=== PATIENT | female | born 1970 | race Caucasian/White ===

== ENCOUNTER → 2016-06-03 | Outpatient (CLI) | payer OTHER ==
[~2016-06-03] MED LIST: AMLO-110 PO; ASPCH81X PO; CLOP1TAB54 PO; COEN1CAP17 PO; CYCL10TA6 PO; ESCI1TAB10 PO; ESOM20CA PO; FERR325T5 PO; FLUT0.0529 NAE; FLUT0.15 NAE; GLYB5TAB8 PO; INSDGI SQ; LISI40TA PO; LORA-741 PO; LSX20 PO; METF-384 PO; METO25TA3 PO; NTRGSL/4 UT; NVLGI/PEN SQ; PRED1SUS3 OPR; ROSU5TAB PO
--- NOTE | 2016-06-04 05:43 | PAP/PSG TECHNICIAN REPORT ---
[facility] Fence Gate Assembler Polysomnogram Report Study name: None Report date: 06/04/2016 Study date: 06/03/2016 Referring Physician: Brennan Simms M.D. Name: GUILLAUME MCKEON Interpreting Physician: Rosette Simms M.D. Date of : 1970 Fence Gate Assembler: Aster Longoria [facility]. Sex: Female Age: 45 StudyType: PSG Weight: 306 lbs Height: 45 years, Height 5' 10" Neck Circum: 15.75 inches BMI: 43.9 Medications: Diabeta 5 mg, Crestor 10 mg, Lantus, Lexapro 20 mg, Prednisone, Lasix, Novolog, Metofrmin, Insulin, Toprol, Norvasc, Ativan, Lisinopril, Nexium, Nitrostat, CoQ10, Flonase, Cyclobenzaprine, Ferrous Sulfate, Aspirin Patient History 45 yr. old male here for a possible split night sleep study with ETC02. Patient complains of restlessness and snoring. Patients Ernest sleepiness scale score is 3/21 ( patient does not drive). Patient took 2 Benadryl at 3:40 am for being itchy Parameters Monitored NPSG: E1-M2, E2-M1, Fp1-M2, Fp2-M1, F3-M2, F4-M2, F4-M1, C3-M2, C4-M2, C4-M1, O1-M2, O2-M2, O2-M1, T3-M2, T4-M1, P3-M2, P4-M1, CHIN1, CHIN2, HR, EKG, Legs, PFLOW, SNOR, FLOW, CFLOW, Tidal Volume, THOR, ABDO, SpO2, PLTH, CPRESS, ETCO2 Wave, ETCO2, pH Sleep Architecture Sleep Stages Time at Lights Off 9:53:29 PM STAGES Time (min.) TST (%) Time at Lights On 5:30:29 AM Wake 274.5 -- Total Recording Time (TRT) 454.50 min. N1 49.5 28 Total Sleep Period (TSP) 350.5 min. N2 101.0 56 Total Sleep Time (TST) 180.0min. N3 29.5 16 Awake Time 274.5 min. REM 0.0 0 Wake after Sleep Onset 173.0 min. Sleep Efficiency (SE) 40 % Sleep Onset Latency (JUANA) 104.0 min. Number of Stage 1 Shifts None Awakenings 23 Stage Changes 93 Number of REM periods N/A REM 0.0 0 REM Latency NONE min. NREM 180.0 100 Body Position Analysis Supine Right Left Side Prone Vertical Total Sleep Time (min.) 163.3 46.2 4.5 50.69 130.7 0.0 Total Sleep Time (%) 12% 26% 3% 28 60% N/A% Total Sleep Time REM (min.) 0.0 0.0 0.0 None 0.0 0.0 Total Sleep Time NREM (min.) 21.2 46.2 4.5 None 108.1 0.0 Intermittent Wake (min.) 142.0 41.1 68.7 None 22.6 0.0 Total Sleep Period (%) 23% None None None None None Arousals Myoclonus (PLM) * Events Count Index Events Count Index Spontaneous 8 3 Events Awake (PLMW) 438 95.7 Respiratory 9 3.0 Events Asleep w/ Arousal (PLMA) 45 15.0 PLM 45 15 Events Asleep w/o Arousal (PLMS) 188 62.7 Snoring 9 3 Total Asleep 233 77.7 Total 71 24 Total 671 89 Respiratory Analysis * CA OA MA CH H RERA Total Count 0 0 0 0 36 1 36 Index 0.0 0.0 0.0 0 12.0 0 12.3 Mean Duration 0.0 0.0 0.0 0.00 21.1 21.6 21.1 Longest Duration 0.0 0.0 0.0 0.00 0.0 21.6 50.2 Respiratory Event Summary Total Supine ~Supine Right Left Prone REM NREM Apneas Count 0 0 0 0 0 0 N/A 0 Index 0.0 0 0 0.0 0.0 0 N/A 0 Hypopneas (4% Desat) Count 36 13 23 6 2 15 N/A 36 Index 12.0 36.7 9 7.8 26.7 8.3 N/A 12.0 Apneas & All Hypopneas Count 36 13 23 6 2 15 N/A 36 Index 12.0 37 9 8 27 8 N/A 12.0 Respiratory Events (Manager Application+All Hyp+RERA) Count 36 13 24 6 2 16 N/A 36 Index 12.3 37 9 7.8 26.7 8.9 N/A 12.3 Respiratory Related Arousal Count 9 13 6 2 0 4 N/A 9 Index 3.0 8 2 3 0 2 N/A 3 Snoring Analysis Supine Right Left Prone REM NREM Total Snore duration 23.0 min Snores count 31 484 0 421 N/A 936 936 Snore mean duration 1.5 Sec Snores index 88 629 0 234 N/A 312.0 312.0 TST with snoring (%) 12.8% SpO2 Analysis Total REM NREM Awake <50% 0.0 min. 0.0 min. 0.0 min. 0.0 min. 51 - 60% 0.0 min. 0.0 min. 0.0 min. 0.0 min. 61 - 70% 0.0 min. 0.0 min. 0.0 min. 0.0 min. 71 - 80% 0.0 min. 0.0 min. 0.0 min. 0.0 min. 81 - 90% 25.0 min. 0.0 min. 14.5 min. 10.5 min. 91 - 100% 419.3 min. 0.0 min. 165.5 min. 253.8 min. Average 93 0 92 94 Minimum SpO2 83 N/A 84 83 Desaturation Event Index 16.4 0.0 17.7 15.5 # Desat. Events below 89% 20 N/A 13 7 Time(%) with Saturation below 89% 0.7 0.0 0.3 0.3 Time(min.) with Saturation below 89% 3.0 0.0 1.6 1.5 Heart Rate Analysis End Tidal CO2 Analysis Min (bpm) Max (bpm) Average (bpm) TSP (mins) % of TSP Awake 47 102 84 Above 55 mmHg 0.0 0.0 NREM 73 96 81 50-55 mmHg 0.0 0.0 REM N/A N/A N/A 45-50 mmHg 16.9 9.4 Overall 73 96 81 40-45 mmHg 97.4 54.1 35-40 mmHg 19.1 10.6 30-35 mmHg 5.8 3.2 Average ETCO2 0.0 Supplemental O2 Values Minimum O2 level: None Value Start Time End Time Fence Gate Assembler Comments MS. Mckeon slept in the right, left, supine and prone positions. No cardiac arrhythmia. PLMs noted. No bruxism noted. Snoring was noted and scored as a 4 on a scale of 0 through 5. (0=no snoring, 5=snoring loud enough to be heard through a closed door or down the farmer way) MS. Mckeon awoke to use the restroom once during the night. MS. Mckeon stated, that wasn't an uncommon night. The final report will be interpreted and signed by a sleep physician. The completed physician report will then be placed in the patient medical record. Therapy (cm H2O) 0 TIB (min.) 454.5 TST (min.) 180.0 Sleep Onset (min.) 104.0 REM Onset From Sleep (min.) NONE Sleep Efficiency % 40 Wakefulness (%) 60 Wakefulness (min.) 274.5 NREM 1 (%) 28 NREM 1 (min.) 49.5 NREM 2 (%) 56 NREM 2 (min.) 101.0 NREM 3 (%) 16 NREM 3 (min.) 29.5 REM (%) 0 REM (min.) 0.0 # Arousals 71 Arousal Index 24 # Snore 936 Snore Index 312.0 AHI 12.0 AHI Supine 37 AHI Non-Supine 9 NREM AHI 12.0 REM AHI N/A RDI 12.3 # Obstructive Apnea 0 # Central Apnea 0 # Mixed Apnea 0 # Hypopneas 36 RERAs 1 Total Respiratory Events 46 Time Below SpO2 89% (min.) 1.6 Mean NREM SpO2 (%) 92 Mean REM SpO2 (%) N/A Mean Sleep SpO2 (%) 92 Min NREM SpO2 (%) 84 Min REM SpO2 (%) N/A Position Supine (min.) 163.3 Position Non-supine (min.) 158.8 LM Index Sleep 77.7 LM Index NREM 77.7 LM Index REM N/A Mean Heart Rate (bpm) 81 Min Heart Rate (bpm) 73
--- NOTE | 2016-06-14 06:39 | POLYSOMNOGRAPH REPORT ---
REFERRING PERSON: Dr. Aaron Simms. THERAPIST PHYSICAL: Aster Longoria. Ms. Friedman is a 45-year-old female sent for a possible split night sleep study. She complains of restlessness and snoring. Her [place] Sleepiness Scale score on the evening of this study is 3, BMI is 43.9. This patient does not drive, and per the maintenance mechanic technician's notes, she took 2 Benadryl at 3:40 a.m. because she felt itchy. Following the technical and digital specifications of the [place] [employer] (AASM), a standard diagnostic polysomnogram was performed, monitoring EEG, EOG, EMG (chin and leg deviations), oxygen saturation, body position, digital video, respiratory effort and airflow. The sleep Stage and Event scoring was based on the AASM Manual for the Scoring of Sleep and Associated Events, 2007 edition. Apneas are defined as a drop in the peak thermal sensor excursion by >90% of baseline for at least 10 seconds. Hypopneas were scored using the 4% oxygen desaturation rule (4A-Medicare) and a decrease in the nasal pressure excursions by >30% of baseline for at least 10 seconds. Respiratory effort-related arousal (RERA) is defined as a sequence of breaths lasting at least 10 seconds, characterized by increasing respiratory effort or flattening of the nasal pressure waveform leading to an arousal from sleep when the sequence of breaths does not meet criteria for an apnea or hypopnea. Apnea Hypopnea index (AHI) is defined as the number of apneas and hypopneas occurring in an hour of sleep. Respiratory disturbance index (RDI) is defined as the number of apneas, hypopneas, and RERAs occurring in an hour of sleep. Ms. Friedman's total sleep period time was 350.5 minutes. Total sleep time was short at 180 minutes. Total non-REM sleep time was the entire duration of the study or 180 minutes. She spent 28% of that time in N1 sleep, 56% in N2 sleep, and 16% in N3 sleep. REM latency was prolonged at 104 minutes with wake after sleep onset of 173 minutes. Sleep efficiency was 40%. There were 71 cortical arousals from sleep. 9 of these arousals were due to snoring, 9 due to respiratory events, 8 were spontaneous, and the remaining 45 were due to periodic limb movements. There were 233 periodic limb movements noted on this test. Limb movement index was 77.7, limb movement with arousal index was 15. This may be clinically significant; however, in light of the sleep disordered breathing found on this study, this should be reevaluated after her FIORELLA is treated. There was 1 central, 1 obstructive, and no mixed apneas on this test. There were 36 hypopneas and 1 RERA. Apnea-hypopnea index was 12, consistent with mild sleep apnea. There were 936 snoring events recorded on this test. Total sleep time with snoring was 12.8%. Mean saturation during sleep was 93% with desaturations to 83%; however, these desaturations, less than 89%, persisted for only 3 minutes of total recording time. There was no cardiac ectopy noted on this study. During sleep, Ms. Friedman's heart rate ranged from a low of 73 beats per minute to a high of 96 beats per minute. End-tidal CO2 was recorded on this test. End-tidal CO2s were between 45 and 50 mmHg for 9.4% of total sleep period time, between 40 and 45 mmHg for 54.1%, between 35 and 40 mmHg for 10.6% of total sleep period time, and between 30 and 35 mmHg for 3.2% of total sleep period time. IMPRESSION AND PLAN: A 45-year-old female with evidence of mild sleep apnea without nocturnal hypoxemia on this sleep study. She also had significant periodic limb movements of sleep, but in light of her sleep disordered breathing, these may be secondary to obstructive sleep apnea. They may resolve with treatment. 1. This patient would likely benefit from positive airway pressure therapy. She should return to sleep lab for a full night titration, and then based on those results, be started on equipment at home. A download from her machine can be reviewed in 1 month, both to check compliance as well as AHI, and further pressure adjustments can occur at that time. 2. Should this patient be unwilling or unable to tolerate CPAP therapy, she could be referred to ear, nose and throat or oral surgery/dental medicine to discuss alternative treatments for sleep disordered breathing.
== END | disposition home or self-care (01) ==
LOC: C.NEUR 21:00
PROVIDERS: ATTEND Family Medicine
DX: R06.83 Snoring (principal); E66.01 Morbid (severe) obesity due to excess calories; F45.8 Other somatoform disorders; G25.81 Restless legs syndrome; G47.30 Sleep apnea, unspecified

== ENCOUNTER 2016-12-15 09:27 | Observation (INO) | payer OTHER ==
[~2016-12-15] VITALS: Ht 177.8 cm; Wt 138.9 kg
[~2016-12-15 09:27] MED LIST changes: -FLUT0.15 NAE; -LORA-741 PO; -LSX20 PO; -PRED1SUS3 OPR
[2016-12-15] MEDS ORDERED: FLUT0.15 NAE (09:46)
[2016-12-15] MEDS ORDERED: SODIUM CHLORIDE 0.9% 1000ML 1,000 ML IV STA (10:03)
[2016-12-15] MEDS ORDERED: KETOROLAC TROMETHAMINE 30 MG/ML VIAL IV STA (10:03)
--- NOTE | 2016-12-15 10:12 | EMERGENCY ROOM VISIT NOTE ---
History Report prepared by Dario: Val Tim Under the Supervision of: Dr. Sim Szymanski M.D. First contact with patient: 09:52 Chief Complaint: ILLNESS Stated Complaint: SOB,LACK OF APPETITE,FLANK PAIN,FATIGUE History of Present Illness The patient is a 46 year old female who presents to the Emergency Room with complaints of shortness of breath beginning the last couple of days. The patient states that she does not have chest pain right now but does have chest pressure upon exertion. She also reports that she feels fatigued and that she ran a low grade fever, but denies having abdominal pain. The patient is on Aspirin and Plavix and has stents in place. She reports taking 2 baby Aspirin today. She denies any chance of . Source of History: patient Onset: last couple of days Position: other (global) Quality: other (shortness of breath) Associated Symptoms: + fevers, + chest pain (and pressure), + fatigue, No abdominal pain Review of Systems See HPI for pertinent positives & negatives. A total of 10 systems reviewed and were otherwise negative. Past Medical & Surgical Medical Problems: (1) Anemia (2) CAD (coronary artery disease) (3) Chest pain (4) Depression (5) DM2 (diabetes mellitus, type 2) (6) GERD (gastroesophageal reflux disease) (7) HLD (hyperlipidemia) (8) HTN (hypertension) (9) Retinopathy Surgical Problems: (1) Hx of tonsillectomy (2) Previous section (3) S/P drug eluting coronary stent placement Family History Diabetes mellitus Heart disease Hypertension Kidney disease Social History Smoking Status: Never Smoker Alcohol Use: none Drug Use: none Marital Status: Housing Status: lives with family Occupation Status: unemployed Current/Historical Medications Scheduled Amlodipine (Norvasc), 5 MG PO DAILY Aspirin (Aspirin Chewable), 81 MG PO DAILY Clopidogrel Bisulfate (Plavix), 75 MG PO DAILY Coenzyme Q10 (Ubidecarenone) (Co Q 10), 200 MG PO DAILY Escitalopram Oxalate (Lexapro), 20 MG PO DAILY Esomeprazole Magnesium (Nexium), 20 MG PO HS Ferrous Sulfate (Ferrous Sulfate), 325 MG PO BID Fluticasone Propionate (Nasal) (Flonase Allergy Relief), 1 SPRY KATARZYNA DAILY Glyburide (Micronase), 10 MG PO QAM Insulin Aspart (Novolog Flexpen), 12 UNITS SQ WM Insulin Glargine (Lantus), 60 SQ QAM Lisinopril (Zestril), 40 MG PO DAILY Metformin Hcl (Glucophage), 1,000 MG PO BIDM Metoprolol Succ (Toprol Xl) (Toprol-Xl), 25 MG PO DAILY Prednisolone Acetate (Ophth) (Pred Forte 1% Oph), 1 DROPS OPR QID Rosuvastatin Calcium (Crestor), 10 MG PO DAILY Scheduled PRN Cyclobenzaprine Hcl (Flexeril), 10 MG PO HS PRN Furosemide (Furosemide), 20 MG PO BID PRN for fluid accumulation/ wt gain Lorazepam (Ativan), 0.5 MG PO Q6H PRN for Anxiety Nitroglycerin (Nitrostat), 0.4 MG UT UD PRN Allergies Coded Allergies: Codeine (Verified Allergy, Severe, DIFFICULTY BREATHING, 12/15/16) PATIENT HAS TOLERATED MORPHINE IN THE PAST FOR A C SECTION Statins (Verified Allergy, Mild, MUSCLE ACHINESS FROM MULTIPLE STATINS, ) Physical Exam Vital Signs Date Time Temp Pulse Resp B/P (MAP) Pulse Ox O2 Delivery O2 Flow Rate FiO2 12/15/16 11:52 71 20 132/76 98 Room Air 12/15/16 10:25 80 18 133/93 97 Room Air 12/15/16 10:14 95 Room Air 12/15/16 10:14 80 12/15/16 09:34 37.0 87 16 141/85 95 Room Air Physical Exam GENERAL: Patient is a healthy-appearing well-nourished female HEAD: Normocephalic atraumatic EYES: Ocular movements intact pupils equal and react to light OROPHARYNX mucous membranes are moist no exudates present no erythema or edema present NECK: Supple no nuchal rigidity CHEST: Good equal expansion LUNGS: Clear and equal to auscultation CARDIAC: Normal S1 and S2 ABDOMEN: Soft nontender no guarding BACK: No CVA tenderness EXTREMITIES: No pain upon palpation normal muscle strength in all groups no clubbing cyanosis or edema NEURO: Patient is following commands and answering questions appropriately. Alert and oriented x3 Cranial Nerves 2-12 grossly intact Medical Decision & Procedures ER Provider Diagnostic Interpretation: X-ray results as stated below per interpretation by me and the radiologist: SINGLE VIEW CHEST CLINICAL HISTORY: Atypical chest pain. FINDINGS: An AP, portable, upright chest radiograph is compared to study dated 10/21/2014. The examination is degraded by portable technique, large body habitus, and patient rotation. The cardiomediastinal silhouette is unremarkable. The lungs and pleural spaces are clear. No pneumothorax is seen. The bony thorax is grossly intact. IMPRESSION: No active disease in the chest. Electronically signed by: Benny Whatley M.D. 12/15/2016 10:47 AM Dictated Date/Time: 12/15/2016 10:47 AM Radiology results as stated below per my review and radiologist interpretation: CT ANGIOGRAM OF THE CHEST CLINICAL HISTORY: Atypical chest pain. Dyspnea. COMPARISON STUDY: Chest x-ray dated 12/15/2016. TECHNIQUE: Following the IV administration of 119 cc of Optiray 320, CT angiogram of the chest was performed from the upper abdomen to the thoracic inlet utilizing the pulmonary embolus protocol. Images are reviewed in the axial, sagittal, and coronal planes. 3-D MIPS images are created and assessed. IV contrast was administered without complication. A dose lowering technique was utilized adhering to the principles of ALARA. The Examination is degraded by large body habitus, and by streak artifact from the body wall abutting the CT gantry. CT DOSE: 621.07 mGy.cm FINDINGS: Thyroid: Imaged portions of the thyroid gland are normal in size and attenuation. Thoracic aorta: The thoracic aorta is normal in caliber and demonstrates standard 3-vessel arch anatomy. No dissection is seen. Pulmonary vasculature: The pulmonary trunk is mildly dilated measuring 3.3 cm in diameter. This suggests pulmonary artery hypertension. There are no filling defects identified in main, lobar, or segmental pulmonary branches to suggest pulmonary embolus. Heart: The heart is enlarged and without pericardial effusion. The coronary arteries are calcified. A stent is noted in the left coronary artery. Lungs and pleural spaces: Evaluation of the lung parenchyma is degraded by respiratory motion artifact. The lungs and pleural spaces are clear. The trachea and central airways are patent. Mediastinum: There is no mediastinal lymphadenopathy. Ariella: Clear. Axillae: There is no axillary lymphadenopathy. Upper abdomen: There is a small hiatal hernia. Partially visualized upper abdominal viscera is otherwise within normal limits. Skeletal structures: No lytic or blastic bony lesions are seen. IMPRESSION: 1. There is no evidence of pulmonary embolus in the main, lobar, or segmental pulmonary arteries. 2. The lungs are clear. 3. Cardiomegaly. Electronically signed by: Benny Whatley M.D. 12/15/2016 12:10 PM Dictated Date/Time: 12/15/2016 12:07 PM Laboratory Results 12/15/16 10:25 Red Blood Count 4.26, Mean Corpuscular Volume 81.7, Mean Corpuscular Hemoglobin 27.0, Mean Corpuscular Hemoglobin Concent 33.0, Mean Platelet Volume 9.3, Neutrophils (%) (Auto) 56.2, Lymphocytes (%) (Auto) 29.4, Monocytes (%) (Auto) 8.5, Eosinophils (%) (Auto) 4.8, Basophils (%) (Auto) 0.8, Neutrophils # (Auto) 4.85, Lymphocytes # (Auto) 2.54, Monocytes # (Auto) 0.73, Eosinophils # (Auto) 0.41, Basophils # (Auto) 0.07 12/15/16 10:25 Test 12/15/16 10:05 12/15/16 10:21 12/15/16 10:25 Urine Color DK YELLOW Urine Appearance CLEAR (CLEAR) Urine pH 5.0 (4.5-7.5) Urine Specific [place] 1.029 (1.000-1.030) Urine Protein NEG (NEG) Urine Glucose (UA) 3+ (NEG) Urine Ketones TRACE (NEG) Urine Occult Blood NEG (NEG) Urine Nitrite NEG (NEG) Urine Bilirubin NEG (NEG) Urine Urobilinogen NEG (NEG) Urine Leukocyte Esterase NEG (NEG) Urine Test NEG (NEG) Influenza Type A (RT-PCR) Neg for Influ A (NEG) Influenza Type A Antigen Neg for Influ A (NEG) Influenza Type B Antigen Neg for Influ B (NEG) Influenza Type B (RT-PCR) Neg for Influ B (NEG) White Blood Count 8.63 K/uL (4.8-10.8) Red Blood Count 4.26 M/uL (4.2-5.4) Hemoglobin 11.5 g/dL (12.0-16.0) Hematocrit 34.8 % (37-47) Mean Corpuscular Volume 81.7 fL (80-100) Mean Corpuscular Hemoglobin 27.0 pg (25-34) Mean Corpuscular Hemoglobin Concent 33.0 g/dl (32-36) Platelet Count 350 K/uL (130-400) Mean Platelet Volume 9.3 fL (7.4-10.4) Neutrophils (%) (Auto) 56.2 % Lymphocytes (%) (Auto) 29.4 % Monocytes (%) (Auto) 8.5 % Eosinophils (%) (Auto) 4.8 % Basophils (%) (Auto) 0.8 % Neutrophils # (Auto) 4.85 K/uL (1.4-6.5) Lymphocytes # (Auto) 2.54 K/uL (1.2-3.4) Monocytes # (Auto) 0.73 K/uL (0.11-0.59) Eosinophils # (Auto) 0.41 K/uL (0-0.5) Basophils # (Auto) 0.07 K/uL (0-0.2) RDW Standard Deviation 43.0 fL (36.4-46.3) RDW Coefficient of Variation 14.5 % (11.5-14.5) Immature Granulocyte % (Auto) 0.3 % Immature Granulocyte # (Auto) 0.03 K/uL (0.00-0.02) D-Dimer 610 ug/L FEU (0-500) Anion Gap 6.0 mmol/L (3-11) Est Creatinine Clear Calc Drug Dose 119.6 ml/min Estimated GFR () 88.3 Estimated GFR (Non- 76.2 BUN/Creatinine Ratio 12.2 (10-20) Calcium Level 8.5 mg/dl (8.5-10.1) Total Bilirubin 0.2 mg/dl (0.2-1) Direct Bilirubin < 0.1 mg/dl (0-0.2) Aspartate Amino Transf (AST/SGOT) 16 U/L (15-37) Alanine Aminotransferase (ALT/SGPT) 30 U/L (12-78) Alkaline Phosphatase 68 U/L (45-117) Total Creatine Kinase 76 U/L (26-192) Creatine Kinase MB < 0.5 ng/ml (0.5-3.6) Creatine Kinase MB Ratio (0-3.0) Troponin I < 0.015 ng/ml (0-0.045) Total Protein 6.9 gm/dl (6.4-8.2) Albumin 3.2 gm/dl (3.4-5.0) Lyme Disease IgG Antibody NEG (NEG) Lyme Disease IgM Antibody NEG (NEG) Monoscreen NEG (NEG) Labs reviewed by ED physician. Medications Administered Medications (Trade) Dose Ordered Sig/Neftaly Route Start Time Stop Time Status Last Admin Dose Admin Sodium Chloride 1,000 ml @ 999 mls/hr Q1H1M STAT IV 12/15/16 10:03 12/15/16 11:03 DC 12/15/16 10:24 999 MLS/HR Ketorolac Tromethamine (Toradol Inj) 30 mg NOW STAT IV 12/15/16 10:03 12/15/16 10:05 DC 12/15/16 10:25 30 MG Aspirin (Aspirin Chew) 162 mg STK-MED ONCE .ROUTE 12/15/16 12:43 12/15/16 12:44 DC 12/15/16 12:46 162 MG Miscellaneous Information (Nursing Verbal Med Order) 1 ea ONE ONCE N/A 12/15/16 12:45 12/15/16 12:46 DC 12/15/16 12:46 1 EA ECG Indication: SOB/dyspnea Rate (beats per minute): 81 Rhythm: normal sinus Findings: no acute ischemic change, no ectopy ED Course 1000: Past medical records reviewed. The patient was evaluated in room B7. A complete history and physical examination was performed. 1003: Ordered Toradol Inj 30 mg IV, Sodium Chloride 1,000 ml @ 999 mls/hr IV. 1222: I discussed the patient's case with Nora Reyez PA-C, she has agreed to evaluate the patient for further management and care. 1243: Ordered Aspirin 162 mg. 1318: Upon reexamination the patient is resting. I discussed results and treatment plan with the patient. She verbalizes agreement and understanding. I spoke with Dr. Carlson from the [facility]. The patient will be evaluated for further management. Medical Decision Differential diagnosis: Etiologies such as cardiac ischemia, aortic dissection, pulmonary embolism, pneumonia, pneumothorax, musculoskeletal, infections, pericarditis, myocarditis , esophageal rupture, gastrointestinal, as well as others were entertained. This is a 46-year-old female who presents emergency Department with a history of coronary stents complaining of chest pain that has been ongoing for the past week. The chest pain gets worse with exertion. Based on the patient's past medical history I do feel that the patient should be admitted. She has a normal CK-MB and troponin as well as CT PE. Her EKG is unchanged from previous. I did discuss her case with the hospitalist service who agreed to admit the patient. Patient was in agreement with the treatment plan. Medication Reconcilliation Current Medication List: was personally reviewed by me Blood Pressure Screening Patient's blood pressure: Elevated blood pressure Blood pressure disposition: Referred to PCP Consults Time Called: 1200 Consulting Physician: Nora Reyez PA-C Returned Call: 1222 I discussed the patient's case with Nora Reyez PA-C, she has agreed to evaluate the patient for further management and care. Additional Consults: Time Called: 1300 Consulted Physician: Dr. Smith Returned Call: [phone] Additional Comments: Upon reexamination the patient is resting. I discussed results and treatment plan with the patient. She verbalizes agreement and understanding. I spoke with Dr. Carlson from the [facility]. The patient will be evaluated for further management. Impression Primary Impression: Precordial chest pain Scribe Attestation The scribe's documentation has been prepared under my direction and personally reviewed by me in its entirety. I confirm that the note above accurately reflects all work, treatment, procedures, and medical decision making performed by me. Departure Information Dispostion Being Evaluated By Hospitalist Referrals Oscar Rosen M.D. (PCP) Patient Instructions My [facility]
[2016-12-15 10:28] LABS: URINE APPEARANCE CLEAR (CLEAR); URINE BILIRUBIN NEG (NEG); URINE COLOR DK YELLOW; URINE NITRITE NEG (NEG); URINE SPECIFIC GRAVITY 1.029 (1.000-1.030); UROBILINOGEN NEG (NEG)
[2016-12-15 10:31] LABS: PREG INTERNAL NEGATIVE QC NEG CLEAR BACKGROUND; PREG INTERNAL POSITIVE QC POS CONTROL LINE
[2016-12-15 10:32] LABS: MANUAL MICROSCOPIC REQUIRED? NO; REVIEW REQ? NO
[2016-12-15 10:40] LABS: BASO % 0.8 %; BASO ABS # 0.07 K/uL (0-0.2); COMPLETE YES; EOS % 4.8 %; HEMATOCRIT 34.8 % (37-47); IG% 0.3 %; LYMPH % 29.4 %; LYMPH ABS # 2.54 K/uL (1.2-3.4); MEAN CELL VOLUME 81.7 fL (80-100); MEAN PLATELET VOLUME 9.3 fL (7.4-10.4); MONO % 8.5 %; NEUT % 56.2 %; PLATELET COUNT 350 K/uL (130-400); RED BLOOD COUNT 4.26 M/uL (4.2-5.4); WHITE BLOOD COUNT 8.63 K/uL (4.8-10.8)
--- NOTE | 2016-12-15 10:49 | DIAGNOSTIC IMAGING REPORT ---
SINGLE VIEW CHEST CLINICAL HISTORY: Atypical chest pain. FINDINGS: An AP, portable, upright chest radiograph is compared to study dated 10/21/2014. The examination is degraded by portable technique, large body habitus, and patient rotation. The cardiomediastinal silhouette is unremarkable. The lungs and pleural spaces are clear. No pneumothorax is seen. The bony thorax is grossly intact. IMPRESSION: No active disease in the chest. Electronically signed by: Benny Whatley M.D. 12/15/2016 10:47 AM Dictated Date/Time: 12/15/2016 10:47 AM
[2016-12-15 10:59] LABS: ALT/SGPT 30 U/L (12-78); BLOOD UREA NITROGEN 11 mg/dl (7-18); BUN/CREATININE RATIO 12.2 (10-20); CALCIUM 8.5 mg/dl (8.5-10.1); CARBON DIOXIDE 27 mmol/L (21-32); CHLORIDE 101 mmol/L (98-107); CREATININE 0.91 mg/dl (0.60-1.20); GLUCOSE 243 mg/dl (70-99); POTASSIUM 4.2 mmol/L (3.5-5.1); SODIUM 134 mmol/L (136-145)
[2016-12-15 11:04] LABS: ALKALINE PHOSPHATASE 68 U/L (45-117); AST/SGOT 16 U/L (15-37)
[2016-12-15] MEDS ORDERED: OPTIRAY 320 IV PRN (11:30)
[2016-12-15 11:37] LABS: LYME DISEASE AB IGG NEG (NEG); LYME DISEASE AB IGM NEG (NEG)
--- NOTE | 2016-12-15 12:11 | DIAGNOSTIC IMAGING REPORT ---
CT ANGIOGRAM OF THE CHEST CLINICAL HISTORY: Atypical chest pain. Dyspnea. COMPARISON STUDY: Chest x-ray dated 12/15/2016. TECHNIQUE: Following the IV administration of 119 cc of Optiray 320, CT angiogram of the chest was performed from the upper abdomen to the thoracic inlet utilizing the pulmonary embolus protocol. Images are reviewed in the axial, sagittal, and coronal planes. 3-D MIPS images are created and assessed. IV contrast was administered without complication. A dose lowering technique was utilized adhering to the principles of ALARA. The Examination is degraded by large body habitus, and by streak artifact from the body wall abutting the CT gantry. CT DOSE: 621.07 mGy.cm FINDINGS: Thyroid: Imaged portions of the thyroid gland are normal in size and attenuation. Thoracic aorta: The thoracic aorta is normal in caliber and demonstrates standard 3-vessel arch anatomy. No dissection is seen. Pulmonary vasculature: The pulmonary trunk is mildly dilated measuring 3.3 cm in diameter. This suggests pulmonary artery hypertension. There are no filling defects identified in main, lobar, or segmental pulmonary branches to suggest pulmonary embolus. Heart: The heart is enlarged and without pericardial effusion. The coronary arteries are calcified. A stent is noted in the left coronary artery. Lungs and pleural spaces: Evaluation of the lung parenchyma is degraded by respiratory motion artifact. The lungs and pleural spaces are clear. The trachea and central airways are patent. Mediastinum: There is no mediastinal lymphadenopathy. Ariella: Clear. Axillae: There is no axillary lymphadenopathy. Upper abdomen: There is a small hiatal hernia. Partially visualized upper abdominal viscera is otherwise within normal limits. Skeletal structures: No lytic or blastic bony lesions are seen. IMPRESSION: 1. There is no evidence of pulmonary embolus in the main, lobar, or segmental pulmonary arteries. 2. The lungs are clear. 3. Cardiomegaly. Electronically signed by: Benny Whatley M.D. 12/15/2016 12:10 PM Dictated Date/Time: 12/15/2016 12:07 PM
[2016-12-15 12:34] LABS: INFLUENZA A PCR Neg for Influ A (NEG); INFLUENZA B PCR Neg for Influ B (NEG)
[2016-12-15] MEDS ORDERED: ASPIRIN 81 MG CHEW ONE (12:43)
[2016-12-15] MEDS ORDERED: NURSING VERBAL MED ORDER ONE (12:45)
[2016-12-15] MEDS ORDERED: ACETAMINOPHEN 325 MG TAB PO PRN (13:15)
[2016-12-15] MEDS ORDERED: NITROGLYCERIN 0.4 MG SL PER TAB CHARGE SL PRN (13:15)
[2016-12-15] MEDS ORDERED: ONDANSETRON INJ 2 MG/ML 2 ML VIAL IV PRN (13:15)
[2016-12-15] MEDS ORDERED: GLUCOSE 10 TABS/TUBE PO PRN (13:30)
[2016-12-15] MEDS ORDERED: DEXTROSE 50% 50 ML SYR IV PRN (13:30)
[2016-12-15] MEDS ORDERED: GLUCOSE 40% GEL 15 GM TUBE PO PRN (13:30)
[2016-12-15] MEDS ORDERED: GLUCAGON FOR INJ 1 MG VIAL SQ PRN (13:30)
[2016-12-15] MEDS ORDERED: IV FLUIDS COMPLETED PRN (13:45)
[2016-12-15] MEDS ORDERED: CYCLOBENZAPRINE HCL 10 MG TAB PO PRN (14:15)
[2016-12-15] MEDS ORDERED: FUROSEMIDE 20 MG TAB PO PRN (14:15)
[2016-12-15] MEDS ORDERED: NITROGLYCERIN 0.4 MG SL PER TAB CHARGE UT PRN (14:15)
[2016-12-15] MEDS ORDERED: LORAZEPAM 0.5 MG TAB PO PRN (14:15)
[2016-12-15] MEDS ORDERED: LORA-741 PO (14:18)
[2016-12-15] MEDS ORDERED: LSX20 PO (14:18)
[2016-12-15] MEDS ORDERED: PRED1SUS3 OPR (14:18)
--- NOTE | 2016-12-15 14:42 | History and Physical ---
History & Physical Date & Time of Service: Dec 15, 2016 at 14:20 Chief Complaint: Sob,Lack Of Appetite,Flank Pain,Fatigue Primary Care Physician: Oscar Rosen M.D. History of Present Illness Source: patient, clinic records This is a 46 year old female with PMH of CAD s/p LOWELL to LAD in 11/2012 and PCI to LAD in 09/2014, HTN, HL, DM type 2, obesity, paroxysmal ventricular tachycardia, and other problems listed below who presents to the ED with exertional chest pain. Patient follows with Dr. Carlson for cardiology. Patient reports 3 day history of left sided chest pressure upon exertion. No radiation. Episodes last 1 minute and resolve with rest. She did not take nitro. Currently she is chest pain free. States discomfort felt similar to prior angina. Took 2 baby ASA prior to arrival and was given additional 2 baby ASA in ER. She is currently chest pain free. She also notes fatigue and SOB which occurs at random, no relation to activity. Has occasional palpitations attributed to PVC's. Has had mild nausea with decreased appetite x 2 weeks. Has chronic reflux symptoms which are no worse than usual. She reports low grade temps of 99.5. Denies diaphoresis, chills, dizziness, syncope, rhinorrhea, cough , orthopnea, vomiting, abdominal pain, LE edema, rash abnormal bleeding. No heavy lifting or increased anxiety. Last stress echo 12/2015 was negative with EF 55-59%. Past Medical/Surgical History Medical Problems: (1) Anemia Status: Resolved (2) CAD (coronary artery disease) Status: Chronic (3) Depression Status: Chronic (4) DM2 (diabetes mellitus, type 2) Status: Chronic (5) GERD (gastroesophageal reflux disease) Status: Chronic (6) HLD (hyperlipidemia) Status: Chronic (7) HTN (hypertension) Status: Chronic (8) Retinopathy Status: Chronic Surgical Problems: (1) Hx of tonsillectomy Status: Chronic (2) Previous section Status: Chronic (3) S/P drug eluting coronary stent placement Status: Chronic Family History Diabetes mellitus Heart disease Hypertension Kidney disease Social History Smoking Status: Never Smoker Alcohol Use: occasionally (1 drink every 1-2 months) Drug Use: none Marital Status: Housing status: lives with family Occupational Status: unemployed Immunizations History of Influenza Vaccine: Unknown History of Tetanus Vaccine?: Unknown History of Pneumococcal: Unknown History of Hepatitis B Vaccine: Unknown Allergies Coded Allergies: Codeine (Verified Allergy, Severe, DIFFICULTY BREATHING, 12/15/16) PATIENT HAS TOLERATED MORPHINE IN THE PAST FOR A C SECTION Statins (Verified Allergy, Mild, MUSCLE ACHINESS FROM MULTIPLE STATINS, ) Home Medications Scheduled Amlodipine (Norvasc), 5 MG PO DAILY Aspirin (Aspirin Chewable), 81 MG PO DAILY Clopidogrel Bisulfate (Plavix), 75 MG PO DAILY Coenzyme Q10 (Ubidecarenone) (Co Q 10), 200 MG PO DAILY Escitalopram Oxalate (Lexapro), 20 MG PO DAILY Esomeprazole Magnesium (Nexium), 20 MG PO HS Ferrous Sulfate (Ferrous Sulfate), 325 MG PO BID Fluticasone Propionate (Nasal) (Flonase Allergy Relief), 1 SPRY KATARZYNA DAILY Glyburide (Micronase), 10 MG PO QAM Insulin Aspart (Novolog Flexpen), 12 UNITS SQ WM Insulin Glargine (Lantus), 60 SQ QAM Lisinopril (Zestril), 40 MG PO DAILY Metformin Hcl (Glucophage), 1,000 MG PO BIDM Metoprolol Succ (Toprol Xl) (Toprol-Xl), 25 MG PO DAILY Prednisolone Acetate (Ophth) (Pred Forte 1% Oph), 1 DROPS OPR QID Rosuvastatin Calcium (Crestor), 10 MG PO DAILY Scheduled PRN Cyclobenzaprine Hcl (Flexeril), 10 MG PO HS PRN Furosemide (Furosemide), 20 MG PO BID PRN for fluid accumulation/ wt gain Lorazepam (Ativan), 0.5 MG PO Q6H PRN for Anxiety Nitroglycerin (Nitrostat), 0.4 MG UT UD PRN Review of Systems Ten systems reviewed and negative except as noted in HPI. Physical Exam Vital Signs Date Time Temp Pulse Resp B/P (MAP) Pulse Ox O2 Delivery O2 Flow Rate FiO2 12/15/16 13:31 75 12/15/16 13:11 71 18 156/82 96 Room Air 12/15/16 11:52 71 20 132/76 98 Room Air 12/15/16 10:25 80 18 133/93 97 Room Air 12/15/16 10:14 95 Room Air 12/15/16 10:14 80 12/15/16 09:34 37.0 87 16 141/85 95 Room Air General Appearance: no apparent distress, + obese, + pertinent finding (alert, not in distress, at bedside) Head: normocephalic, atraumatic Eyes: normal inspection, sclerae normal ENT: hearing grossly normal, pharynx normal Neck: supple, trachea midline Respiratory/Chest: chest non-tender, lungs clear, normal breath sounds, no respiratory distress, no accessory muscle use Cardiovascular: regular rate, rhythm, no murmur, normal peripheral pulses Abdomen/GI: normal bowel sounds, non tender, soft Extremities/Musculoskelatal: no calf tenderness, no pedal edema Neurologic/Psych: alert, normal mood/affect, oriented x 3, + pertinent finding (no focal deficit on gross examination) Skin: normal color, warm/dry, no rash (no rash on the chest) Diagnostics Laboratory Results Results Past 24 Hours Test 12/15/16 10:05 12/15/16 10:21 12/15/16 10:25 Range/Units Urine Color DK YELLOW Urine Appearance CLEAR CLEAR Urine pH 5.0 4.5-7.5 Urine Specific [place] 1.029 1.000-1.030 Urine Protein NEG NEG Urine Glucose (UA) 3+ NEG Urine Ketones TRACE NEG Urine Occult Blood NEG NEG Urine Nitrite NEG NEG Urine Bilirubin NEG NEG Urine Urobilinogen NEG NEG Urine Leukocyte Esterase NEG NEG Urine Test NEG NEG Influenza Type A (RT-PCR) Neg for Influ A NEG Influenza Type A Antigen Neg for Influ A NEG Influenza Type B Antigen Neg for Influ B NEG Influenza Type B (RT-PCR) Neg for Influ B NEG White Blood Count 8.63 4.8-10.8 K/uL Red Blood Count 4.26 4.2-5.4 M/uL Hemoglobin 11.5 12.0-16.0 g/dL Hematocrit 34.8 37-47 % Mean Corpuscular Volume 81.7 80-100 fL Mean Corpuscular Hemoglobin 27.0 25-34 pg Mean Corpuscular Hemoglobin Concent 33.0 32-36 g/dl Platelet Count 350 130-400 K/uL Mean Platelet Volume 9.3 7.4-10.4 fL Neutrophils (%) (Auto) 56.2 % Lymphocytes (%) (Auto) 29.4 % Monocytes (%) (Auto) 8.5 % Eosinophils (%) (Auto) 4.8 % Basophils (%) (Auto) 0.8 % Neutrophils # (Auto) 4.85 1.4-6.5 K/uL Lymphocytes # (Auto) 2.54 1.2-3.4 K/uL Monocytes # (Auto) 0.73 0.11-0.59 K/uL Eosinophils # (Auto) 0.41 0-0.5 K/uL Basophils # (Auto) 0.07 0-0.2 K/uL RDW Standard Deviation 43.0 36.4-46.3 fL RDW Coefficient of Variation 14.5 11.5-14.5 % Immature Granulocyte % (Auto) 0.3 % Immature Granulocyte # (Auto) 0.03 0.00-0.02 K/uL D-Dimer 610 0-500 ug/L FEU Sodium Level 134 136-145 mmol/L Potassium Level 4.2 3.5-5.1 mmol/L Chloride Level 101 98-107 mmol/L Carbon Dioxide Level 27 21-32 mmol/L Anion Gap 6.0 3-11 mmol/L Blood Urea Nitrogen 11 7-18 mg/dl Creatinine 0.91 0.60-1.20 mg/dl Est Creatinine Clear Calc Drug Dose 119.6 ml/min Estimated GFR () 88.3 Estimated GFR (Non- 76.2 BUN/Creatinine Ratio 12.2 10-20 Random Glucose 243 70-99 mg/dl Calcium Level 8.5 8.5-10.1 mg/dl Total Bilirubin 0.2 0.2-1 mg/dl Direct Bilirubin < 0.1 0-0.2 mg/dl Aspartate Amino Transf (AST/SGOT) 16 15-37 U/L Alanine Aminotransferase (ALT/SGPT) 30 12-78 U/L Alkaline Phosphatase 68 45-117 U/L Total Creatine Kinase 76 26-192 U/L Creatine Kinase MB < 0.5 0.5-3.6 ng/ml Creatine Kinase MB Ratio 0-3.0 Troponin I < 0.015 0-0.045 ng/ml Total Protein 6.9 6.4-8.2 gm/dl Albumin 3.2 3.4-5.0 gm/dl Lyme Disease IgG Antibody NEG NEG Lyme Disease IgM Antibody NEG NEG Monoscreen NEG NEG Diagnostic Radiology SINGLE VIEW CHEST CLINICAL HISTORY: Atypical chest pain. IMPRESSION: No active disease in the chest. CT ANGIOGRAM OF THE CHEST IMPRESSION: 1. There is no evidence of pulmonary embolus in the main, lobar, or segmental pulmonary arteries. 2. The lungs are clear. 3. Cardiomegaly. EKG NSR, nonspecific T wave abnormality lead III- also present on prior EKG, no ST changes Impression Assessment and Plan EXERTIONAL CHEST PRESSURE R/o ACS; hx known CAD s/p LOWELL to LAD 12/10/2012 and PCI to LAD in 09/2014, HTN, HL , DM, obesity Last stress echo negative in 12/2015 Initial troponin negative EKG- NSR, nonspecific T wave abnormality in III- present on prior EKG, no ST change CXR unremarkable, CTA negative for PE Trend serial cardiac enzymes Repeat EKG in am Received total of 4 baby aspirin today Continue aspirin, Plavix, statin, beta madhavi Consult cardiology NPO after midnight- may need stress test in am DM TYPE 2 Hold metformin and glyburide Continue home Lantus Novolog sliding scale coverage Diabetes education consult Needs test strips upon discharge HYPERTENSION BP is stable Continue amlodipine, lisinopril, metoprolol succinate, PRN Lasix 20 mg DEPRESSION/ ANXIETY Continue Lexapro and PRN Ativan GERD Continue PPI DVT PROPHYLAXIS Heparin SQ FULL CODE DISPOSITION Observation telemetry Follows with Dr. Rosen for primary care Patient seen in collaboration with Dr. Seo. Please see his addendum. Agree with above H and P. Briefly 46F with hx of cad s/p stent presents with chest pain on and off on exertion since last three days. Sometimes sob, mildly nauseaous, no diziness or sweating. Currently cjhest pain free. hemodynamically stably No fevers. p/e Ge not in distress. 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 Y/N: Yes Risk Level: Low Given or contraindicated: Unfractionated heparin SQ
[2016-12-15 14:58] VITALS: BP 167/94; PULSE 74; TEMP 37.1; O2SAT 95
[2016-12-15 15:26] LABS: INR 0.9 (0.9-1.1); PARTIAL THROMBOPLASTIN RATIO 0.9; PROTHROMBIN TIME (PATIENT) 9.9 SECONDS (9.0-12.0)
[2016-12-15] MEDS ORDERED: METOPROLOL TARTRATE 1 MG/ML VIAL IV PRN (16:45)
[2016-12-15 16:56] VITALS: BP 142/80; PULSE 76
[2016-12-15 16:57] LABS: CKMB/CK RATIO 1.1 (0-3.0)
[2016-12-15] MEDS: PrednisoLONE ACET 1% OP SUSP 5 ML BTL OPR SCH ×2 (16:57→21:48)
--- NOTE | 2016-12-15 17:34 | Cardiology Consultation ---
Cardiology Consultation Date of Consultation: Dec 15, 2016 History of Present Illness Iris Friedman is a 46 year old female seen in cardiology consultation per the request of Nora Reyez PA-C evaluation of chest discomfort. The patient reports a three-day history of left-sided chest pressure with exertion. The episodes last about a minute resolved with rest. She feels very similar to her prior angina. All the patient as an outpatient in the past with most recent outpatient visit in December 2015. At that time she had described chest discomfort that was reminiscent of her prior cardiac stent and therefore debridement stress echocardiogram was performed which was negative. She has past history of coronary heart disease with drug-eluting stent to the proximal left anterior coronary artery on 12/20/2012. She then had recurrent anginal symptoms prompting repeat cardiac catheterization and PCI to the mid LAD on 10/22/14. Past Medical/Surgical History Problem List: Medical Problems: (1) Anemia (2) CAD (coronary artery disease) (3) Chest pain (4) Depression (5) DM2 (diabetes mellitus, type 2) (6) GERD (gastroesophageal reflux disease) (7) HLD (hyperlipidemia) (8) HTN (hypertension) (9) Retinopathy Surgical Problems: (1) Hx of tonsillectomy (2) Previous section (3) S/P drug eluting coronary stent placement History Social History: Non smoker Family History: Mother with history of myocardial infarction and hypertension Father with history of heart disease, details unknown Review Of Systems See above for pertinent positives & negatives. A total of 10 systems reviewed and were otherwise negative. Allergies Coded Allergies: Codeine (Verified Allergy, Severe, DIFFICULTY BREATHING, 12/15/16) PATIENT HAS TOLERATED MORPHINE IN THE PAST FOR A C SECTION Statins (Verified Allergy, Mild, MUSCLE ACHINESS FROM MULTIPLE STATINS, ) Medications Reported Home Medications Medications Dose Route/Sig Max Daily Dose Days Date Category Dose Instructions Pred Forte 1% Oph (Prednisolone Acetate (Ophth)) 1 % [place] 1 Drops OPR QID 12/15/16 Reported Ativan (Lorazepam) 0.5 Mg Tab 0.5 Mg PO Q6H PRN 12/15/16 Reported Furosemide 20 Mg Tab 20 Mg PO BID PRN 12/15/16 Reported Flonase Allergy Relief (Fluticasone Propionate (Nasal)) 50 Mcg/Act Spr 1 [place] KATARZYNA DAILY 12/15/16 Reported Novolog Flexpen (Insulin Aspart) 100 Units/Ml Inj 12 Units SQ WM 06/14/15 Reported ADJUSTED PER SLIDING SCALE Toprol-Xl (Metoprolol Succinate) 25 Mg Tabcr 25 Mg PO DAILY 06/14/15 Reported Crestor (Rosuvastatin Calcium) 5 Mg Tab 10 Mg PO DAILY 06/14/15 Reported Lantus (Insulin Glargine) 100 Unit/Ml Inj 60 SQ QAM 10/21/14 Reported Ferrous Sulfate 325 Mg Tab 325 Mg PO BID 10/16/14 Reported Plavix (Clopidogrel Bisulfate) 75 Mg Tab 75 Mg PO DAILY 10/16/14 Reported Lexapro (Escitalopram Oxalate) 20 Mg Tab 20 Mg PO DAILY 10/16/14 Reported Nexium (Esomeprazole Magnesium) 20 Mg Cap 20 Mg PO HS 10/16/14 Reported Co Q 10 (Coenzyme Q10 (Ubidecarenone)) 100 Mg Cap 200 Mg PO DAILY 10/16/14 Reported Norvasc (Amlodipine Besylate) 5 Mg Tab 5 Mg PO DAILY 10/16/14 Reported Micronase (Glyburide) 5 Mg Tab 10 Mg PO QAM 02/13/13 Reported 2 pill dose take with breakfast Nitrostat (Nitroglycerin) 0.4 Mg Tab 0.4 Mg UT UD PRN 02/13/13 Reported 1 tab under tongue if needed for chest pain. may repeat 3 times. if chest pain continues call 911 Aspirin Chewable (Aspirin) 81 Mg Chew 81 Mg PO DAILY 02/13/13 Reported Zestril (Lisinopril) 40 Mg Tab 40 Mg PO DAILY 12/20/12 Reported Flexeril (Cyclobenzaprine Hcl) 10 Mg Tab 10 Mg PO HS PRN 05/30/12 Reported as needed for muscle spasms Glucophage (Metformin Hcl) 1,000 Mg Tab 1,000 Mg PO BIDM 05/30/12 Reported Physical Exam Vital Signs (Last 8hrs): Last 8 Hrs Date Time Temp Pulse Resp B/P (MAP) Pulse Ox O2 Delivery O2 Flow Rate FiO2 12/15/16 16:56 76 142/80 (100) 12/15/16 14:58 37.1 74 18 167/94 (118) 95 Room Air 12/15/16 14:26 81 18 141/91 99 Room Air 12/15/16 13:31 75 12/15/16 13:11 71 18 156/82 96 Room Air 12/15/16 11:52 71 20 132/76 98 Room Air 12/15/16 10:25 80 18 133/93 97 Room Air 12/15/16 10:14 95 Room Air 12/15/16 10:14 80 12/15/16 09:34 37.0 87 16 141/85 95 Room Air General Appearance: Alert and Oriented x3. NAD. Head: Normocephalic Atraumatic. Eyes: PERRLA, EOMI, conjunctiva and sclera clear Neck: Supple. No carotid bruits noted. No JVD. No HJD. Respiratory: Breath sounds clear to auscultation bilaterally. No w/r/r. Cardiovascular: Reg rate and rhythm. S1 and S2 noted. No murmurs, rubs, gallops. PMI non displace. Abdomen: Normal bowel sounds, soft nontender. no abdominal bruits. Extremities: No edema, no clubbing or cyanosis. distal pulses 2/4 bilaterally. Neuro: No focal deficits. Psychiatric: Normal affect. Data Last 24 Hours Test 12/15/16 10:05 12/15/16 10:21 12/15/16 10:25 12/15/16 16:23 Urine Color DK YELLOW Urine Appearance CLEAR Urine pH 5.0 Urine Specific [place] 1.029 Urine Protein NEG Urine Glucose (UA) 3+ Urine Ketones TRACE Urine Occult Blood NEG Urine Nitrite NEG Urine Bilirubin NEG Urine Urobilinogen NEG Urine Leukocyte Esterase NEG Urine Test NEG Influenza Type A (RT-PCR) Neg for Influ A Influenza Type A Antigen Neg for Influ A Influenza Type B Antigen Neg for Influ B Influenza Type B (RT-PCR) Neg for Influ B White Blood Count 8.63 K/uL Red Blood Count 4.26 M/uL Hemoglobin 11.5 g/dL Hematocrit 34.8 % Mean Corpuscular Volume 81.7 fL Mean Corpuscular Hemoglobin 27.0 pg Mean Corpuscular Hemoglobin Concent 33.0 g/dl Platelet Count 350 K/uL Mean Platelet Volume 9.3 fL Neutrophils (%) (Auto) 56.2 % Lymphocytes (%) (Auto) 29.4 % Monocytes (%) (Auto) 8.5 % Eosinophils (%) (Auto) 4.8 % Basophils (%) (Auto) 0.8 % Neutrophils # (Auto) 4.85 K/uL Lymphocytes # (Auto) 2.54 K/uL Monocytes # (Auto) 0.73 K/uL Eosinophils # (Auto) 0.41 K/uL Basophils # (Auto) 0.07 K/uL RDW Standard Deviation 43.0 fL RDW Coefficient of Variation 14.5 % Immature Granulocyte % (Auto) 0.3 % Immature Granulocyte # (Auto) 0.03 K/uL Prothrombin Time 9.9 SECONDS Prothromb Time International Ratio 0.9 Activated Partial Thromboplast Time 23.1 SECONDS Partial Thromboplastin Ratio 0.9 D-Dimer 610 ug/L FEU Sodium Level 134 mmol/L Potassium Level 4.2 mmol/L Chloride Level 101 mmol/L Carbon Dioxide Level 27 mmol/L Anion Gap 6.0 mmol/L Blood Urea Nitrogen 11 mg/dl Creatinine 0.91 mg/dl Est Creatinine Clear Calc Drug Dose 119.6 ml/min Estimated GFR () 88.3 Estimated GFR (Non- 76.2 BUN/Creatinine Ratio 12.2 Random Glucose 243 mg/dl Calcium Level 8.5 mg/dl Total Bilirubin 0.2 mg/dl Direct Bilirubin < 0.1 mg/dl Aspartate Amino Transf (AST/SGOT) 16 U/L Alanine Aminotransferase (ALT/SGPT) 30 U/L Alkaline Phosphatase 68 U/L Total Creatine Kinase 76 U/L 74 U/L Creatine Kinase MB < 0.5 ng/ml 0.8 ng/ml Creatine Kinase MB Ratio 1.1 Troponin I < 0.015 ng/ml < 0.015 ng/ml Total Protein 6.9 gm/dl Albumin 3.2 gm/dl Lyme Disease IgG Antibody NEG Lyme Disease IgM Antibody NEG Monoscreen NEG Test 12/15/16 16:30 Bedside Glucose 148 mg/dl EKG performed 12/15/69 revealed normal sinus rhythm at 81 bpm, no significant ST changes. CTA : negative for Pulmonary embolism. Assessment & Plan Impression: 46-year-old female 1. Episodic chest discomfort, cardiac enzymes negative 2 performed 6 hours apart. 2. History of early-onset aggressive CAD with previous stenting to the proximal and mid LAD in 2012 2014 respectively. Plan: Trend cardiac enzymes. If enzymes increased significantly, we'll likely proceed with repeat coronary angiography. If her enzymes remain negative and EKG remains negative, we'll consider proceeding with debridement stress echocardiogram which was ineffective screening test on her in the past as an abnormal debridement stress echocardiogram was performed prior to her 2015 stent. Continue prior to hospital aspirin, clopidogrel, Toprol, and rosuvastatin.
[2016-12-15] MEDS: INSULIN ASPART 100 UNITS/ML 3 ML PEN SC SCH ×2 (17:45→21:46)
[2016-12-15 19:40] VITALS: BP 142/80; PULSE 76; TEMP 37.1; O2SAT 95; BMI 44.2
[2016-12-15 20:00] VITALS: BP 154/85; PULSE 74; TEMP 36.6; O2SAT 96
[2016-12-15] MEDS: HEPARIN SOD 5000 UNIT/0.5 ML CARP SQ SCH (21:47)
[2016-12-15] MEDS: PANTOprazole SOD 40 MG TAB PO SCH (21:48)
[2016-12-15] MEDS: FERROUS SULFATE 325 MG TAB PO SCH (21:51)
[2016-12-15 23:38] VITALS: BP 146/87; PULSE 80; TEMP 36.6; O2SAT 98
[2016-12-16] VITALS (7 sets, daily range): BP systolic 107–150; BP diastolic 72–85; PULSE 64–100; TEMP 36.6–37.1; O2SAT 94–99; Ht 177.8 cm; Wt 138.9 kg
[2016-12-16] MEDS ORDERED: NURSING VERBAL MED ORDER ONE (00:30)
[2016-12-16] MEDS: INSULIN ASPART 100 UNITS/ML 3 ML PEN SC SCH ×4 (00:34→17:40)
[2016-12-16] MEDS: HEPARIN SOD 5000 UNIT/0.5 ML CARP SQ SCH ×3 (06:13→21:17)
[2016-12-16] MEDS: PrednisoLONE ACET 1% OP SUSP 5 ML BTL OPR SCH ×4 (08:42→21:12)
[2016-12-16] MEDS: FLUTICASONE PROPIONATE NA SPR 16 GM BTL NAE SCH (08:44)
[2016-12-16] MEDS: FERROUS SULFATE 325 MG TAB PO SCH ×2 (09:00→21:12)
[2016-12-16] MEDS: INSULIN GLARGINE SOLOSTAR 100 UNITS/ML 3 ML PEN SQ SCH (09:31)
--- NOTE | 2016-12-16 11:54 | Cardiology Follow-Up ---
Subjective General Date of Service: Dec 16, 2016. Chief Complaint: follow up chest pain Pt evaluation today including: conversation w/ patient, conversation w/ family , physical exam History of Present Illness The patient is a 46 year old female seen in follow up . Pt feels well. Denies recurrent chest pain overnight. Trop and repeat EKG normal. Allergies Coded Allergies: Codeine (Verified Allergy, Severe, DIFFICULTY BREATHING, 12/15/16) PATIENT HAS TOLERATED MORPHINE IN THE PAST FOR A C SECTION Statins (Verified Allergy, Mild, MUSCLE ACHINESS FROM MULTIPLE STATINS, ) Social History Smoking Status: Never Smoker Hx Tobacco Use In Past Year?: No Hx Alcohol Use - Type And Amou: Yes (zima; rarely) Hx Substance Use - Type And Am: No Problem List Medical Problems: (1) Precordial chest pain Status: Acute Physical Exam Vital Signs Last Vital Signs Documentation Date Time Temp Pulse Resp B/P (MAP) Pulse Ox O2 Delivery O2 Flow Rate FiO2 12/16/16 08:00 Room Air 12/16/16 07:45 36.6 77 16 150/85 (106) 99 Physical Exam Constitutional: Level of Distress: NAD Neck: supple, trachea midline Lungs: Auscultation: no wheezing, no rales/crackles, no rhonchi Cardiovascular: Heart Auscultation: RRR, normal S2, no murmurs, no rubs Extremities: no cyanosis, no edema Neurologic: Gait & Station: pertinent finding (no focal defitics ) Assessment and Plan Assessment and Plan Impression: 46-year-old female 1. Episodic chest discomfort, cardiac enzymes negative 2 performed 6 hours apart. 2. History of early-onset aggressive CAD with previous stenting to the proximal and mid LAD in 2012 2014 respectively. Plan: Proceed with DSE . Further recommendations to follow . Laboratory Results Last 24 Hours Test 12/15/16 16:23 12/15/16 16:30 12/15/16 20:26 12/15/16 22:24 Total Creatine Kinase 74 U/L 81 U/L Creatine Kinase MB 0.8 ng/ml < 0.5 ng/ml Creatine Kinase MB Ratio 1.1 Troponin I < 0.015 ng/ml < 0.015 ng/ml Bedside Glucose 148 mg/dl 190 mg/dl Test 12/16/16 00:06 12/16/16 06:09 Bedside Glucose 198 mg/dl 143 mg/dl
[2016-12-16 12:05] LABS: EBV EARLY ANTIGEN AB <9.00 U/ML
[2016-12-16] MEDS ORDERED: DOBUTamine HCL 12.5 MG/ML 20 ML VIAL ONE (14:46)
[2016-12-16] MEDS ORDERED: ATROPINE SULFATE 0.1 MG/ML 5ML SYR ONE (14:46)
[2016-12-16] MEDS ORDERED: METOPROLOL TARTRATE 1 MG/ML VIAL ONE (14:46)
--- NOTE | 2016-12-16 14:49 | Cardiology Progress Note ---
Cardiology Progress Note Date of Service Dec 16, 2016. Cardiology Progress Note Dobutamine infusion was terminated due to symptoms of back pain and severe SOB without overt EKG changes and normal stress wall motion noted. Target HR was not achieved. Plan: keep in hospital for further observation. Advance diet. NPO after MN except meds, and will discuss next step based on how patient feels overnight and in am. Concha Carlson,
[2016-12-16] MEDS ORDERED: PERFLUTREN LIPID MICROSPHERE (DEFINITY) IV ONE (16:01)
[2016-12-16] MEDS: AMLODIPINE BESYLATE 5 MG TAB PO SCH (16:13)
[2016-12-16] MEDS: ASPIRIN 81 MG ECTAB PO SCH (16:13)
[2016-12-16] MEDS: CLOPIDOGREL BISULFATE 75 MG TAB PO SCH (16:13)
[2016-12-16] MEDS: ESCITALOPRAM OXALATE 20 MG TAB PO SCH (16:13)
[2016-12-16] MEDS: LISINOPRIL 40 MG TAB PO SCH (16:14)
[2016-12-16] MEDS: METOPROLOL SUCC 25MG EXT REL TAB PO SCH (16:14)
[2016-12-16] MEDS: ROSUVASTATIN CALCIUM 10 MG TAB PO SCH (16:14)
--- NOTE | 2016-12-16 17:16 | DOBUTAMINE ECHO ---
*NOTICE TO RECEIVING REPUBLICAN AGENCY This information is strictly Confidential and protected under [place] law. [place] law prohibits you from making any further disclosure of this information unless further disclosure is expressly permitted by the written consent of the person to whom it pertains or is authorized by law. A general authorization for the release of medical or other information is not sufficient for this purpose. Hospital accepts no responsibility if the information is made available to any other person, INCLUDING THE PATIENT. Interpretation Summary * Name: GUILLAUME MCKEON Study Date: 12/16/2016 01:37 PM * Patient Location: [facility]\S\N280\S\1 HR: 75 * : 1970 (M/d/yyyy) Gender: Female Height: 70 in * Age: 46 yrs Ethnicity: CA Weight: 307 lb * Ordering Physician: Derik Carlson * Referring Physician: Self, Referred * Performed By: Lit Angelo RCS * * Reason For Study: A-Fib * BSA: 2.5 m2 * -- Conclusions -- * STRESS STUDY: * Test terminated due to patient complaints of severe shortness of breath and back pain, having reached a peak heart rate of 136 bpm which is equivalent to 77 % of the age predicted maximal heart rate. * No echocardographic or EKG evidence of inducible ischemia was detected at the heart rate achieved, however, the inadequate heart rate response reduces the sensitivity of the test for detecting ischemia. * RESTING STUDY: * No significant valvular heart disease. Procedure Details * A contrast injection of Definity was performed to improve assessment of LV function. * Contrast was injected into an intravenous site in the left arm. * One vial of Definity ultrasound contrast was diluted in normal saline to a total volume of 10 ml. A total of '10' ml of solution was administered during imaging. * Lot # [id number] of Definity utilized for procedure. * Expiration date 1AUG18. * The attending nurse who injected the contrast agent was Holly Chen RN. * ECHOEX, CPT #[id number] * ECHO DOPPLER, CPT #[id number] * ECHO COLOR FLOW, CPT #[id number] Left Ventricle * The left ventricle is normal in size. * There is normal left ventricular wall thickness. * Left ventricular systolic function is normal. * Ejection Fraction = 55-60%. * Resting wall motion: Normal. Stress wall motion: Appropriate increase in Left ventricular systolic function and decrease in cavity size. No stress induced segmental wall motion abnormalities. Right Ventricle * The right ventricle is normal in size and function. Atria * The left atrial size is normal. * Right atrial size is normal. * No ASD detected; PFO is not assessed. Mitral Valve * The mitral valve is normal. * There is no mitral valve stenosis. * There is trace mitral regurgitation. Tricuspid Valve * The tricuspid valve is normal. * There is no tricuspid stenosis. * There is trace tricuspid regurgitation. Aortic Valve * The aortic valve is trileaflet. * No hemodynamically significant valvular aortic stenosis. * No aortic regurgitation is present. Pulmonic Valve * The pulmonic valve is not well visualized. Great Vessels * The aortic root is normal size. Pericardium * There is no pericardial effusion. Stress Parameters * The baseline ECG displays normal sinus rhythm. * The baseline ECG displays normal ST segments. * The stress ECG response was normal * The stress portion of this study was personally supervised by the undersigned interpreting physician. * Rest heart rate was '76' BPM. * Rest blood pressure was '150/79' * Maximum heart rate achieved was 136 bpm. * Maximum heart rate was 77 % of maximum age-predicted heart rate. * Maximum blood pressure was '209/50' * Maximum Dobutamine infusion rate was '30' mcg/kg/min. * A total of 0.25 mg of intravenous Atropine was used to supplement Dobutamine for heart rate response. * Dobutamine infusion was terminated due to symptoms * The patient exhibited dyspnea during the drug infusion. * A total of 5 mg of IV Metoprolol was administered to reverse Dobutamine-induced tachycardia. * The drug infusion was stopped due to dyspnea. Left Ventricular Diastolic Function * The Lv diastolic function is normal. MMode 2D Measurements and Calculations IVSd 1.0 cm LVIDd 4.0 cm LVIDs 1.9 cm LVPWd 1.0 cm IVS/LVPW 1.0 FS 51.8 % EDV(Teich) 68.6 ml ESV(Teich) 11.3 ml EF(Teich) 83.5 % EDV(cubed) 62.3 ml ESV(cubed) 7.0 ml EF(cubed) 88.8 % LV mass(C)d 129.3 grams LV mass(C)dI 51.6 grams/m\S\2 SV(Teich) 57.2 ml SI(Teich) 22.8 ml/m\S\2 SV(cubed) 55.3 ml SI(cubed) 22.1 ml/m\S\2 Ao root diam 2.8 cm Ao root area 6.3 cm\S\2 LVOT diam 2.0 cm LVOT area 3.1 cm\S\2 EDV(MOD-sp4) 112.3 ml ESV(MOD-sp4) 48.7 ml EF(MOD-sp4) 56.6 % EDV(MOD-sp2) 107.4 ml ESV(MOD-sp2) 38.0 ml EF(MOD-sp2) 64.6 % SV(MOD-sp4) 63.6 ml SI(MOD-sp4) 25.4 ml/m\S\2 SV(MOD-sp2) 69.3 ml SI(MOD-sp2) 27.7 ml/m\S\2 Doppler Measurements and Calculations MV E max osito 75.9 cm/sec MV A max osito 51.8 cm/sec MV E/A 1.5 LV IVRT 0.11 sec MV dec slope 470.6 cm/sec\S\2 MV dec time 0.16 sec Ao V2 max 129.6 cm/sec Ao max PG 6.7 mmHg Ao max PG (full) 1.6 mmHg Ao V2 mean 90.8 cm/sec Ao mean PG 3.6 mmHg Ao mean PG (full) 1.1 mmHg Ao V2 VTI 26.4 cm ROD(I,A) 2.7 cm\S\2 ROD(I,D) 2.7 cm\S\2 ROD(V,A) 2.7 cm\S\2 ROD(V,D) 2.7 cm\S\2 LV V1 max PG 5.1 mmHg LV V1 mean PG 2.5 mmHg LV V1 max 112.7 cm/sec LV V1 mean 72.4 cm/sec LV V1 VTI 22.7 cm SV(Ao) 167.8 ml SI(Ao) 67.0 ml/m\S\2 SV(LVOT) 71.4 ml SI(LVOT) 28.5 ml/m\S\2
--- NOTE | 2016-12-16 17:58 | Progress Note ---
Internal Med Progress Note Date of Service: Dec 16, 2016. Provider Documentation: SUBJECTIVE: resting comfortably afebrile no chest pain or sob no nausea OBJECTIVE: Vital Signs-as noted below Exam: General-alert and awake. Not in distress. Obese ENT-normal hearing Neck-no neck masses Lungs-cta b/l no wheezing or crackles Heart-s1 and s2 heard regular rhythm no murmurs Abdomen-soft bowel sounds present non tender no distension Extremities-no edema no erythema Neuro-alert and awake moves extremities Lab data as noted below. ASSESSMENT & PLAN: EXERTIONAL CHEST PRESSURE R/o ACS; hx known CAD s/p LOWELL to LAD 12/10/2012 and PCI to LAD in 09/2014, HTN, HL , DM, obesity serial ce negative could not complete dobutamine stress test as patinet developed sob and back pain to obseve further testing as per cardiology. DM TYPE 2 Holding metformin and glyburide Continuing home Lantus Novolog sliding scale coverage Diabetes education consult Needs test strips upon discharge hba1c levels in am HYPERTENSION BP is stable on amlodipine, lisinopril, metoprolol succinate, PRN Lasix 20 mg will monitor DEPRESSION/ ANXIETY on Lexapro and PRN Ativan GERD on PPI DVT PROPHYLAXIS Heparin SQ FULL CODE DISPOSITION monitor in tele to be determined Vital Signs: Date Time Temp Pulse Resp B/P (MAP) Pulse Ox O2 Delivery O2 Flow Rate FiO2 12/16/16 16:00 Room Air 12/16/16 15:26 36.7 64 18 107/72 (84) 97 12/16/16 12:24 37.1 74 18 145/84 (104) 98 Room Air 12/16/16 12:00 Room Air 12/16/16 08:00 Room Air 12/16/16 07:45 36.6 77 16 150/85 (106) 99 Room Air 12/16/16 04:00 Room Air 12/16/16 03:15 36.6 74 20 133/75 (94) 96 Room Air 12/16/16 00:00 Room Air 12/15/16 23:38 36.6 80 20 146/87 (106) 98 Room Air 12/15/16 20:00 36.6 74 18 154/85 (108) 96 Room Air 12/15/16 20:00 96 Room Air 12/15/16 19:40 37.1 76 18 142/80 95 Room Air Lab Results: Results Past 24 Hours Test 12/15/16 20:26 12/15/16 22:24 12/16/16 00:06 12/16/16 06:09 Range/Units Bedside Glucose 190 198 143 70-90 mg/dl Total Creatine Kinase 81 26-192 U/L Creatine Kinase MB < 0.5 0.5-3.6 ng/ml Creatine Kinase MB Ratio 0-3.0 Troponin I < 0.015 0-0.045 ng/ml Test 12/16/16 11:41 12/16/16 15:33 Range/Units Bedside Glucose 160 211 70-90 mg/dl
[2016-12-16] MEDS: PANTOprazole SOD 40 MG TAB PO SCH (21:12)
[2016-12-16] MEDS: SODIUM CHLORIDE 0.9% 1000ML 1,000 ML IV SCH (21:12)
[2016-12-17] VITALS (13 sets, daily range): BP systolic 112–139; BP diastolic 69–89; PULSE 68–90; TEMP 36.5–37.2; O2SAT 93–99
[2016-12-17] MEDS: INSULIN ASPART 100 UNITS/ML 3 ML PEN SC SCH ×4 (00:19→17:58)
[2016-12-17] MEDS: HEPARIN SOD 5000 UNIT/0.5 ML CARP SQ SCH ×2 (06:20→14:00)
[2016-12-17 07:01] LABS: ESTIMATED AVERAGE GLUCOSE 252 mg/dl; HA1C FLAG Normal (Normal)
[2016-12-17 07:13] LABS: BUN/CREATININE RATIO 11.6 (10-20); CALCIUM 8.3 mg/dl (8.5-10.1); CREATININE 0.77 mg/dl (0.60-1.20); POTASSIUM 4.1 mmol/L (3.5-5.1)
[2016-12-17] MEDS: PrednisoLONE ACET 1% OP SUSP 5 ML BTL OPR SCH ×3 (08:00→17:02)
[2016-12-17] MEDS: FLUTICASONE PROPIONATE NA SPR 16 GM BTL NAE SCH (08:00)
[2016-12-17] MEDS: AMLODIPINE BESYLATE 5 MG TAB PO SCH (09:20)
[2016-12-17] MEDS: ESCITALOPRAM OXALATE 20 MG TAB PO SCH (09:20)
[2016-12-17] MEDS: ASPIRIN 81 MG ECTAB PO SCH (09:20)
[2016-12-17] MEDS: FERROUS SULFATE 325 MG TAB PO SCH (09:20)
[2016-12-17] MEDS: CLOPIDOGREL BISULFATE 75 MG TAB PO SCH (09:20)
[2016-12-17] MEDS: LISINOPRIL 40 MG TAB PO SCH (09:21)
[2016-12-17] MEDS: METOPROLOL SUCC 25MG EXT REL TAB PO SCH (09:21)
[2016-12-17] MEDS: ROSUVASTATIN CALCIUM 10 MG TAB PO SCH (09:21)
[2016-12-17] MEDS: SODIUM CHLORIDE 0.9% 1000ML 1,000 ML IV SCH (10:10)
[2016-12-17] MEDS: INSULIN GLARGINE SOLOSTAR 100 UNITS/ML 3 ML PEN SQ SCH (10:51)
[2016-12-17] MEDS ORDERED: HEPARIN SOD (PORCINE) 1000 UNIT/ML 10 ML VIAL ONE (14:34)
[2016-12-17] MEDS ORDERED: NiCARDipine HCL INJ 2.5 MG/ML 10 ML AMP ONE (14:34)
[2016-12-17] MEDS ORDERED: NITROGLYCERIN/D5W 100MCG/ML 20ML SYR ONE (14:34)
[2016-12-17] MEDS ORDERED: MIDAZOLAM HCL 1 MG/ML 2ML VIAL ONE (14:35)
[2016-12-17] MEDS ORDERED: FENTANYL CITRATE INJ 50 MCG/1 ML 2 ML VIAL ONE (14:35)
--- NOTE | 2016-12-17 14:48 | Procedure Note ---
Pre-Mod Sedation Assessment General Date of Moderate Sedation: Dec 17, 2016. Vital Signs: Vital Signs Past 12 Hours Date Time Temp Pulse Resp B/P (MAP) Pulse Ox O2 Delivery O2 Flow Rate FiO2 12/17/16 12:03 Room Air 12/17/16 11:34 37.1 82 18 128/72 (90) 94 Room Air 12/17/16 08:00 Room Air 12/17/16 07:07 36.6 78 16 133/78 (96) 98 Room Air 12/17/16 04:00 Room Air 12/17/16 04:00 90 19 135/86 (102) 97 Room Air Review Cardiovascular: regular rate, rhythm, no edema, no gallop, no JVD, + systolic murmur Abdomen: normal bowel sounds, non tender, soft Lungs: lungs clear Pre-Sedation Airway Assessment Oral Cavity: WNL Able to Visualize Vocal Cords: No Short Thick Neck: Yes Hx of Sleep Apnea: Yes Smoking Status: Never Smoker Mallampati Classification: Class III Procedure Planning Contraindications-for Mod Sed: None Yes Notes The planned sedation has been discussed with the patient and consent obtained. I have identified the patient, determined the appropriateness of sedation and have assessed the patient immediately prior to the procedure. All medicine(s) and interventions are by my order.
[2016-12-17] MEDS ORDERED: SODIUM CHLORIDE 0.9% 1000ML 250 ML IV PRN (15:46)
--- NOTE | 2016-12-17 15:48 | Procedure Note ---
Post-Mod Sedation Assessment General Date of Moderate Sedation Dec 17, 2016. Vital Signs: Vital Signs Past 12 Hours Date Time Temp Pulse Resp B/P (MAP) Pulse Ox O2 Delivery O2 Flow Rate FiO2 12/17/16 15:45 65 16 138/74 (95) 96 Room Air 12/17/16 15:35 65 16 132/74 (93) 96 Room Air 12/17/16 15:30 62 16 130/78 (95) 96 Room Air 12/17/16 12:03 Room Air 12/17/16 11:34 37.1 82 18 128/72 (90) 94 Room Air 12/17/16 08:00 Room Air 12/17/16 07:07 36.6 78 16 133/78 (96) 98 Room Air 12/17/16 04:00 Room Air 12/17/16 04:00 90 19 135/86 (102) 97 Room Air Review - Discharge Criteria Vital Signs Stable: Yes Alert/Oriented/Conversant: Yes Returned to Baseline Mental St: Yes Nausea Absent/Minimal: Yes Pain/Discomfort/Absent/Minimal: Yes Normal/Baseline Respirations: Yes Active Bleeding?: No Pt Received D/C Instructions: N/A Prescriptions Given: None Specific Proced. D/C Criteria Distal Pulses Present (Cardiac: Yes Groin site assessed-Card Cath: N/A Voided Prior To Discharge: N/A Discharged Patients Adult Escort/Transportation: N/A
--- NOTE | 2016-12-17 15:57 | Cardiology Follow-Up ---
Subjective General Date of Service: Dec 17, 2016. Chief Complaint: follow up chest pain Pt evaluation today including: conversation w/ patient, physical exam History of Present Illness The patient is a 46 year old female seen in follow up. No chest pain overnight. Allergies Coded Allergies: Codeine (Verified Allergy, Severe, DIFFICULTY BREATHING, 12/15/16) PATIENT HAS TOLERATED MORPHINE IN THE PAST FOR A C SECTION Statins (Verified Allergy, Mild, MUSCLE ACHINESS FROM MULTIPLE STATINS, ) Social History Smoking Status: Never Smoker Hx Tobacco Use In Past Year?: No Hx Alcohol Use - Type And Amou: Yes (zima; rarely) Hx Substance Use - Type And Am: No Problem List Medical Problems: (1) Precordial chest pain Status: Acute Physical Exam Vital Signs Last Vital Signs Documentation Date Time Temp Pulse Resp B/P (MAP) Pulse Ox O2 Delivery O2 Flow Rate FiO2 12/17/16 15:45 65 16 138/74 (95) 96 Room Air 12/17/16 11:34 37.1 Physical Exam Constitutional: Level of Distress: NAD Neck: supple, trachea midline Lungs: Auscultation: no wheezing, no rales/crackles, no rhonchi Cardiovascular: Heart Auscultation: RRR, normal S2, no murmurs, no rubs Extremities: no cyanosis, no edema Neurologic: Gait & Station: pertinent finding (no focal defitics ) Assessment and Plan Assessment and Plan Impression: 46-year-old female 1. Episodic chest discomfort,Equivocal DSE -Pt went on to have cardiac cath via R Radial access with Dr Lewis today, . The previously placed overlapping stents in the LAD were patent. No significant coronary obstruction was noted there or otherwise. Continue medication therapy, I think her discomfort was not due to angina. 2. History of early-onset aggressive CAD with previous stenting to the proximal and mid LAD in 2012 2014 respectively. Plan: OK from cardiac standpoint to discharge after she completes post cath progression. continue prior to hospital medications , including ASA and clopidogrel. Recommend that the following post catheterization discharge instructions are provided to the patient. ACTIVITY RECOMMENDATIONS: It is common to feel weak and fatigue for a few days. * Do not drive or operate any motorized equipment for the next three days. * Limit stair usage (2 or 3 trips a day only) for the next three days. * Do not lift anything heavier than 10 pounds for the next three days. * Do not engage in vigorous exercise or any sports for the next five days. * You may shower the day after your procedure, but do not immerse the area for three days. Cleanse the site gently with soap and water. SPECIAL CARE INSTRUCTIONS: * You may replace the pressure dressing or band-aid the morning after the procedure. * After your procedure, it is normal to have a small bruise or small lump at the site. Examine your site daily for any change in the bruise or lump, redness, swelling, drainage or numbness. Notify your doctor if any change. BLEEDING: * If there is a small amount of bleeding at the site, lie down and apply firm pressure with a clean cloth for ten minutes. When the bleeding stops, lie quietly keeping the procedure limb straight for six hours. Notify your doctor as soon as possible. * If the bleeding does not stop after ten minutes or if there is a large amount of bleeding or spurting, call 911 immediately. Continue to lie down and hold firm pressure until help arrives. SKIN IRRITATION: * You may experience some redness and/or swelling in the area where radiation was administered. If any skin irritation occurs, please contact your family physician. FOLLOW UP VISIT: Keep any scheduled doctor appointments. Concha Carlson, DO Laboratory Results Last 24 Hours Test 12/16/16 18:06 12/16/16 20:29 12/17/16 00:00 12/17/16 06:14 Bedside Glucose 307 mg/dl 280 mg/dl 258 mg/dl 225 mg/dl Test 12/17/16 06:25 12/17/16 07:33 12/17/16 11:40 Sodium Level 138 mmol/L Potassium Level 4.1 mmol/L Chloride Level 104 mmol/L Carbon Dioxide Level 29 mmol/L Anion Gap 5.0 mmol/L Blood Urea Nitrogen 9 mg/dl Creatinine 0.77 mg/dl Est Creatinine Clear Calc Drug Dose 140.8 ml/min Estimated GFR () 108.1 Estimated GFR (Non- 93.2 BUN/Creatinine Ratio 11.6 Random Glucose 234 mg/dl Estimated Average Glucose 252 mg/dl Hemoglobin A1c 10.4 % Calcium Level 8.3 mg/dl Bedside Glucose 221 mg/dl 207 mg/dl
[2016-12-17] MEDS ORDERED: ONDANSETRON INJ 2 MG/ML 2 ML VIAL IV PRN (16:00)
[2016-12-17] MEDS ORDERED: ATROPINE SULFATE 0.1 MG/ML 5ML SYR IV PRN (16:00)
[2016-12-17] MEDS ORDERED: ACETAMINOPHEN 325 MG TAB PO PRN (16:00)
[2016-12-17] MEDS ORDERED: SODIUM CHLORIDE 0.9% 1000ML 1,000 ML IV SCH (16:45)
--- NOTE | 2016-12-17 18:38 | Discharge Instructions ---
Discharge Instructions Date of Service Dec 17, 2016. Admission Reason for Admission: Chest Pain Discharge Discharge Diagnosis / Problem: chest pain Discharge Goals Goal(s): Decrease discomfort, Improve function Activity Recommendations Activity Limitations: resume your previous activity . Instructions / Follow-Up Instructions / Follow-Up FOLLOWUP WITH FAMILY DOCTOR ON November AT 10:45AM. FOLLOWUP WITH CARDIOLOGY SCHEDULED. hba1c 10.4. Needs close followup with PCP for diabetes control. Needs to check blood sugars daily as recommended. POST CARDIAC CATH INSTRUCTIONS: ACTIVITY RECOMMENDATIONS: It is common to feel weak and fatigue for a few days. * Do not drive or operate any motorized equipment for the next three days. * Limit stair usage (2 or 3 trips a day only) for the next three days. * Do not lift anything heavier than 10 pounds for the next three days. * Do not engage in vigorous exercise or any sports for the next five days. * You may shower the day after your procedure, but do not immerse the area for three days. Cleanse the site gently with soap and water. SPECIAL CARE INSTRUCTIONS: * You may replace the pressure dressing or band-aid the morning after the procedure. * After your procedure, it is normal to have a small bruise or small lump at the site. Examine your site daily for any change in the bruise or lump, redness, swelling, drainage or numbness. Notify your doctor if any change. BLEEDING: * If there is a small amount of bleeding at the site, lie down and apply firm pressure with a clean cloth for ten minutes. When the bleeding stops, lie quietly keeping the procedure limb straight for six hours. Notify your doctor as soon as possible. * If the bleeding does not stop after ten minutes or if there is a large amount of bleeding or spurting, call 911 immediately. Continue to lie down and hold firm pressure until help arrives. SKIN IRRITATION: * You may experience some redness and/or swelling in the area where radiation was administered. If any skin irritation occurs, please contact your family physician. FOLLOW UP VISIT: Keep any scheduled doctor appointments. Current Hospital Diet Patient's current hospital diet: Diabetes Type 2 Diet, AHA Diet (Heart Healthy) Discharge Diet Recommended Diet: AHA Diet (Heart Healthy), Diabetes Type 2 Diet Pending Studies Studies pending at discharge: no Laboratory Results Hemoglobin A1c Test 12/17/16 06:25 Range/Units Estimated Average Glucose 252 mg/dl Hemoglobin A1c 10.4 H 4.5-5.6 % Medical Emergencies . Who to Call and When: Medical Emergencies: If at any time you feel your situation is an emergency, please call 911 immediately. . Non-Emergent Contact Non-Emergency issues call your: Primary Care Provider . . "Provider Documentation" section prepared by Maycol Seo. . VTE Core Measure Inpt VTE Proph given/why not?: Unfractionated heparin SQ
--- NOTE | 2016-12-17 18:46 | Progress Note ---
Internal Med Progress Note Date of Service: Dec 17, 2016. Provider Documentation: SUBJECTIVE: resting comfortably slept fine' no chest pain or sob s/p cardia cath today OBJECTIVE: Vital Signs-as noted below Exam: General-alert and awake. Not in distress. Obese ENT-normal hearing Neck-no neck masses Lungs-cta b/l no wheezing or crackles Heart-s1 and s2 heard regular rhythm no murmurs Abdomen-soft bowel sounds present non tender no distension Extremities-no edema no erythema Neuro-alert and awake moves extremities Lab data as noted below. ASSESSMENT & PLAN: EXERTIONAL CHEST PRESSURE R/o ACS; hx known CAD s/p LOWELL to LAD 12/10/2012 and PCI to LAD in 09/2014, HTN, HL , DM, obesity serial ce negative could not complete dobutamine stress test as patient developed sob and back pain s/p cardiac cath today which was unremarkable to d/c home DM TYPE 2 Holding metformin and glyburide Continuing home Lantus Novolog sliding scale coverage Diabetes education consult hba1c levels 10.4 needs close followup with pcp and needs to check sugars regularly HYPERTENSION BP is stable on amlodipine, lisinopril, metoprolol succinate, PRN Lasix 20 mg will monitor DEPRESSION/ ANXIETY on Lexapro and PRN Ativan GERD on PPI Discharged home Vital Signs: Date Time Temp Pulse Resp B/P (MAP) Pulse Ox O2 Delivery O2 Flow Rate FiO2 12/17/16 18:42 36.6 76 20 98 Room Air 12/17/16 18:32 36.6 76 20 130/70 (90) 98 76 12/17/16 17:32 36.7 76 18 134/78 (96) 99 76 12/17/16 17:02 36.6 74 22 139/89 (106) 99 Room Air 74 12/17/16 16:32 36.6 75 20 122/74 (90) 98 Room Air 77 12/17/16 16:18 37.2 80 18 131/81 (98) 93 Room Air 12/17/16 16:17 36.5 75 18 115/69 (84) 98 Room Air 75 12/17/16 16:02 36.5 75 18 115/69 (84) 98 Room Air 75 12/17/16 16:00 99 Room Air 12/17/16 15:47 36.5 68 18 112/84 (93) 99 Room Air 68 12/17/16 15:45 65 16 138/74 (95) 96 Room Air 12/17/16 15:35 65 16 132/74 (93) 96 Room Air 12/17/16 15:30 62 16 130/78 (95) 96 Room Air 12/17/16 12:03 Room Air 12/17/16 11:34 37.1 82 18 128/72 (90) 94 Room Air 12/17/16 08:00 Room Air 12/17/16 07:07 36.6 78 16 133/78 (96) 98 Room Air 12/17/16 04:00 Room Air 12/17/16 04:00 90 19 135/86 (102) 97 Room Air 12/17/16 00:00 Room Air 12/16/16 23:27 37.0 81 18 128/77 (94) 95 Room Air 12/16/16 20:00 Room Air 12/16/16 19:50 37.1 82 18 128/72 94 Room Air 12/16/16 19:36 36.8 100 20 127/79 (95) 96 Room Air Lab Results: Results Past 24 Hours Test 12/16/16 20:29 12/17/16 00:00 12/17/16 06:14 12/17/16 06:25 Range/Units Bedside Glucose 280 258 225 70-90 mg/dl Sodium Level 138 136-145 mmol/L Potassium Level 4.1 3.5-5.1 mmol/L Chloride Level 104 98-107 mmol/L Carbon Dioxide Level 29 21-32 mmol/L Anion Gap 5.0 3-11 mmol/L Blood Urea Nitrogen 9 7-18 mg/dl Creatinine 0.77 0.60-1.20 mg/dl Est Creatinine Clear Calc Drug Dose 140.8 ml/min Estimated GFR () 108.1 Estimated GFR (Non- 93.2 BUN/Creatinine Ratio 11.6 10-20 Random Glucose 234 70-99 mg/dl Estimated Average Glucose 252 mg/dl Hemoglobin A1c 10.4 4.5-5.6 % Calcium Level 8.3 8.5-10.1 mg/dl Test 12/17/16 07:33 12/17/16 11:40 Range/Units Bedside Glucose 221 207 70-90 mg/dl
--- NOTE | 2016-12-17 19:27 | Discharge Summary ---
Discharge Summary Date of Service Dec 17, 2016. Discharge Summary Admission Date: Dec 15, 2016 at 12:46 Discharge Date: Dec 17, 2016 Discharge Disposition: Home Principal Diagnosis: CHEST PAIN Secondary Diagnoses/Problems: (1) Anemia Status: Resolved (2) CAD (coronary artery disease) Status: Chronic (3) Depression Status: Chronic (4) DM2 (diabetes mellitus, type 2) Status: Chronic (5) GERD (gastroesophageal reflux disease) Status: Chronic (6) HLD (hyperlipidemia) Status: Chronic (7) HTN (hypertension) Status: Chronic (8) Retinopathy Status: Chronic Procedures: CTA CHEST: 1. There is no evidence of pulmonary embolus in the main, lobar, or segmental pulmonary arteries. 2. The lungs are clear. 3. Cardiomegaly. S/P DOBUTAMINE STRESS TEST S/P CARDIAC CATH Consultations: CARDIOLOGY Medication Reconciliation Continued Medications: Amlodipine (Norvasc) 5 Mg Tab 5 MG PO DAILY, TAB Aspirin (Aspirin Chewable) 81 Mg Chew 81 MG PO DAILY Clopidogrel Bisulfate (Plavix) 75 Mg Tab 75 MG PO DAILY, TAB Coenzyme Q10 (Ubidecarenone) (Co Q 10) 100 Mg Cap 200 MG PO DAILY Cyclobenzaprine Hcl (Flexeril) 10 Mg Tab 10 MG PO HS PRN, TAB as needed for muscle spasms Escitalopram Oxalate (Lexapro) 20 Mg Tab 20 MG PO DAILY, TAB Esomeprazole Magnesium (Nexium) 20 Mg Cap 20 MG PO HS, CAP Ferrous Sulfate (Ferrous Sulfate) 325 Mg Tab 325 MG PO BID Fluticasone Propionate (Nasal) (Flonase Allergy Relief) 50 Mcg/Act Spr 1 SPRY KATARZYNA DAILY Furosemide (Furosemide) 20 Mg Tab 20 MG PO BID PRN for fluid accumulation/ wt gain Glyburide (Micronase) 5 Mg Tab 10 MG PO QAM, TAB 2 pill dose take with breakfast Insulin Aspart (Novolog Flexpen) 100 Units/Ml Inj 12 UNITS SQ WM ADJUSTED PER SLIDING SCALE Insulin Glargine (Lantus) 100 Unit/Ml Inj 60 SQ QAM Lisinopril (Zestril) 40 Mg Tab 40 MG PO DAILY, TAB Lorazepam (Ativan) 0.5 Mg Tab 0.5 MG PO Q6H PRN for Anxiety, TAB Metformin Hcl (Glucophage) 1,000 Mg Tab 1000 MG PO BIDM, TAB Metoprolol Succ (Toprol Xl) (Toprol-Xl) 25 Mg Tabcr 25 MG PO DAILY, #30 TAB Nitroglycerin (Nitrostat) 0.4 Mg Tab 0.4 MG UT UD PRN, BTL 1 tab under tongue if needed for chest pain. may repeat 3 times. if chest pain continues call 911 Prednisolone Acetate (Ophth) (Pred Forte 1% Oph) 1 % Darby 1 DROPS OPR QID, #5 ML Rosuvastatin Calcium (Crestor) 5 Mg Tab 10 MG PO DAILY, TAB Admission Information HPI (per Admitting provider): This is a 46 year old female with PMH of CAD s/p LOWELL to LAD in 11/2012 and PCI to LAD in 09/2014, HTN, HL, DM type 2, obesity, paroxysmal ventricular tachycardia, and other problems listed below who presents to the ED with exertional chest pain. Patient follows with Dr. Carlson for cardiology. Patient reports 3 day history of left sided chest pressure upon exertion. No radiation. Episodes last 1 minute and resolve with rest. She did not take nitro. Currently she is chest pain free. States discomfort felt similar to prior angina. Took 2 baby ASA prior to arrival and was given additional 2 baby ASA in ER. She is currently chest pain free. She also notes fatigue and SOB which occurs at random, no relation to activity. Has occasional palpitations attributed to PVC's. Has had mild nausea with decreased appetite x 2 weeks. Has chronic reflux symptoms which are no worse than usual. She reports low grade temps of 99.5. Denies diaphoresis, chills, dizziness, syncope, rhinorrhea, cough , orthopnea, vomiting, abdominal pain, LE edema, rash abnormal bleeding. No heavy lifting or increased anxiety. Last stress echo 12/2015 was negative with EF 55-59%. Physical Exam (per Admitting): General Appearance: no apparent distress, + obese, + pertinent finding ( alert, not in distress, at bedside) Head: normocephalic, atraumatic Eyes: normal inspection, sclerae normal ENT: hearing grossly normal, pharynx normal Neck: supple, trachea midline Respiratory/Chest: chest non-tender, lungs clear, normal breath sounds, no respiratory distress, no accessory muscle use Cardiovascular: regular rate, rhythm, no murmur, normal peripheral pulses Abdomen/GI: normal bowel sounds, non tender, soft Extremities/Musculoskelatal: no calf tenderness, no pedal edema Neurologic/Psych: alert, normal mood/affect, oriented x 3, + pertinent finding (no focal deficit on gross examination) Skin: normal color, warm/dry, no rash (no rash on the chest) Hospital Course EXERTIONAL CHEST PRESSURE R/o ACS; hx known CAD s/p LOWELL to LAD 12/10/2012 and PCI to LAD in 09/2014, HTN, HL , DM, obesity serial ce negative could not complete dobutamine stress test as patient developed sob and back pain s/p cardiac cath today which was unremarkable to d/c home DM TYPE 2 Holding metformin and glyburide Continuing home Lantus Novolog sliding scale coverage Diabetes education consult hba1c levels 10.4 needs close followup with pcp and needs to check sugars regularly HYPERTENSION BP is stable on amlodipine, lisinopril, metoprolol succinate, PRN Lasix 20 mg will monitor DEPRESSION/ ANXIETY on Lexapro and PRN Ativan GERD on PPI Discharged home Total time spent on discharge = 35MINUTES This includes examination of the patient, discharge planning, medication reconciliation, and communication with other providers. Discharge Instructions Please take this sheet to every appointment for the next month Discharge Instructions Date of Service Dec 17, 2016. Admission Reason for Admission: Chest Pain Discharge Discharge Diagnosis / Problem: chest pain Discharge Goals Goal(s): Decrease discomfort, Improve function Activity Recommendations Activity Limitations: resume your previous activity . Instructions / Follow-Up Instructions / Follow-Up FOLLOWUP WITH FAMILY DOCTOR ON November AT 10:45AM. FOLLOWUP WITH CARDIOLOGY SCHEDULED. hba1c 10.4. Needs close followup with PCP for diabetes control. Needs to check blood sugars daily as recommended. POST CARDIAC CATH INSTRUCTIONS: ACTIVITY RECOMMENDATIONS: It is common to feel weak and fatigue for a few days. * Do not drive or operate any motorized equipment for the next three days. * Limit stair usage (2 or 3 trips a day only) for the next three days. * Do not lift anything heavier than 10 pounds for the next three days. * Do not engage in vigorous exercise or any sports for the next five days. * You may shower the day after your procedure, but do not immerse the area for three days. Cleanse the site gently with soap and water. SPECIAL CARE INSTRUCTIONS: * You may replace the pressure dressing or band-aid the morning after the procedure. * After your procedure, it is normal to have a small bruise or small lump at the site. Examine your site daily for any change in the bruise or lump, redness, swelling, drainage or numbness. Notify your doctor if any change. BLEEDING: * If there is a small amount of bleeding at the site, lie down and apply firm pressure with a clean cloth for ten minutes. When the bleeding stops, lie quietly keeping the procedure limb straight for six hours. Notify your doctor as soon as possible. * If the bleeding does not stop after ten minutes or if there is a large amount of bleeding or spurting, call 911 immediately. Continue to lie down and hold firm pressure until help arrives. SKIN IRRITATION: * You may experience some redness and/or swelling in the area where radiation was administered. If any skin irritation occurs, please contact your family physician. FOLLOW UP VISIT: Keep any scheduled doctor appointments. Current Hospital Diet Patient's current hospital diet: Diabetes Type 2 Diet, AHA Diet (Heart Healthy) Discharge Diet Recommended Diet: AHA Diet (Heart Healthy), Diabetes Type 2 Diet Pending Studies Studies pending at discharge: no Laboratory Results Hemoglobin A1c Test 12/17/16 06:25 Range/Units Estimated Average Glucose 252 mg/dl Hemoglobin A1c 10.4 H 4.5-5.6 % Medical Emergencies . Who to Call and When: Medical Emergencies: If at any time you feel your situation is an emergency, please call 911 immediately. . Non-Emergent Contact Non-Emergency issues call your: Primary Care Provider . . "Provider Documentation" section prepared by Maycol Seo. . VTE Core Measure Inpt VTE Proph given/why not?: Unfractionated heparin SQ
--- NOTE | 2016-12-17 21:21 | Cardiac Catheterization ---
Procedure Note Procedure Date Dec 17, 2016. Pre-Procedure Diagnosis Acute Coronary Syndrome, Angina, CAD AUC Score 7 Post-Procedure Diagnosis Mild CAD Procedure(s) Performed Coronary Angiography, Left Heart Cath Fence Installer Helper Dr. Lewis Paper Spooler(s) HILARY Schuler Estimated Blood Loss 15ml Medication(s) Fentanyl, Heparin, Nicardipine, Versed, Lidocaine 1% Summary of Findings Clinical indications: Known history of coronary artery disease. Status post Xience 3.5 x 18 millimeter drug-eluting stent proximal LAD December 20, 2012. Post dilated with 4 millimeter diameter noncompliant balloon. Performed for elevated troponin I and unstable anginal symptoms. Also positive stress test. Recurrent anginal symptoms September 2014. Status post deployment of 3 x 0.5 x 28 millimeter Xience drug-eluting stent October 22, 2014 for a 90 percent stenosis located past the prior stent. Stent placed distal to the proximal stent in an overlapping fashion. CAD risk factors include family history premature coronary artery disease, type 2 diabetes mellitus, hypertension, dyslipidemia. The patient was admitted with recurrent chest discomfort reminiscent of her prior anginal symptoms. It was occurring with minimal exertion. Relief with rest. Cardiac enzymes were negative for myocardial injury. A stress echocardiogram was performed. 77 percent maximum predicted heart rate attained. Test terminated secondary to dyspnea and midscapular back discomfort. Resting echo with normal LV systolic function and wall motion. Following exercise normal ECG and echo response. The test was felt to be indeterminant secondary to failure to reach 85 percent maximum predicted heart rate. In light of her coronary artery disease history and her symptoms cardiac catheterization was indicated. The patient was referred to [facility] for cardiac catheterization by Dr. Derik Carlson. Catheterization site: 6 [place] Slender right radial artery. Diagnostic catheter: 5 [place] conXttronic Track catheter. This was used for both right and left coronary angiography and left heart catheterization. Hemostasis: Terumo TR band. Complications: None. Findings: Fluoroscopy revealed the presence of the previous stents in the proximal and early mid LAD. The coronary circulation was right dominant. Very large caliber left main coronary artery without obstructive disease. It gave rise to large caliber left anterior descending and left circumflex coronary arteries. 10-20 percent proximal LAD stenosis proximal to the stents. Diffuse 10-20 percent in stent restenosis. Mid LAD 0-10 percent stenosis. Distal LAD with 10-20 percent stenosis. The distal LAD wraps around the apex of the heart as a very small caliber vessel. The very proximal left circumflex gave rise to very small caliber diagonal type branch. The proximal and mid left circumflex had 0-10 percent luminal diameter narrowing. Mid circumflex gave rise to a long medium caliber obtuse marginal artery which had a 20 percent proximal stenosis. The circumflex then gave rise to very small caliber 2nd marginal artery. Following the origin of the 2nd marginal the circumflex was a very small caliber vessel. Distal circumflex gave rise to 2 very small caliber posterolateral branches. the right coronary was a medium caliber vessel. It had 20 percent proximal, mid, and distal stenoses. The distal RCA gave rise to very small caliber posterior descending and posterolateral arteries. These vessels had no obstructive disease. Conclusion: No significant obstructive coronary artery disease. Mild in stent restenosis in proximal and early mid LAD stents. Plan: The patient will continue cardiology follow-up with Dr. Derik Carlson. She will continue on maximally tolerated medical therapy for CAD risk factor modification. She will remain on antiplatelet therapy. Hemodynamics Rest Ao: 115/65/91 mm Hg Final Ao: 124/54/90 mm Hg LV: 105/17 mm Hg Recommendations Medical therapy and/or Counseling Specimens None Radiation Exposure (mGy) 1856 Contrast (mls) 90 ml Visipaque Fluids (cc crystalloids) 82 ml Drains none Anesthesia intravenous Versed and fentanyl Procedural Complication(s) None Disposition PCU ACC Data Cardiac Status Clinical evaluation leading to the procedure CAD Presntation: Unstable angina Anginal Classification: CCS III Heart Failure: No Cardiogenic Shock w/in 24Hrs: No Cardiac Arrest w/in 24Hrs: No Imaging studies past 6 months: Yes Stress studies past 6 months: Yes Standard Exercise Stress Test: No Stress Echocardiogram: Yes - Indeterminant (Normal resting left ventricular systolic function and wall motion. Following exercise to 77 percent maximum predicted heart rate c/o midscapular discomfort and dyspnea. Normal ECG and echo response.) Stress Testing w/SPECT MPI: No Cardiac CTA: No Coronary Anatomy Dominant: Right Left Main (% Stenosis): Normal LAD (% Stenosis): Proximal (20,10-20 diffuse in stent), Mid (0-10), Distal (10- 20) Circumflex (% Stenosis): Proximal (0-10), Mid (0-10) OM1 (% Stenosis): Proximal (20) RCA (% Stenosis): Proximal (20), Mid (20), Distal (20) R PDA (% Stenosis): Normal R PL1 (% Stenosis): Normal Left Ventricular Angiography EF (%): NA Diagnostic Physician's Name: Rudy Lewis M.D. Status: Elective Closure Device Percutaneous Entry Location: Radial Closure Device: Radial Band Recommendations: Medical therapy and/or Counseling
== END 2016-12-17 19:02 | disposition home or self-care (01) ==
LOC: C.EDB 09:28 → C.MED 12:46 → ENRESERV 13:59 → C.2T 12-17 15:54
PROVIDERS: ADMIT Internal Medicine; ATTEND Internal Medicine
DX: I25.119 Atherosclerotic heart disease of native coronary artery with unspecified angina pectoris (principal); F32.9 Major depressive disorder, single episode, unspecified; E11.9 Type 2 diabetes mellitus without complications; K21.9 Gastro-esophageal reflux disease without esophagitis; E78.5 Hyperlipidemia, unspecified; I10 Essential (primary) hypertension; E66.9 Obesity, unspecified; H35.00 Unspecified background retinopathy; Z79.82 Long term (current) use of aspirin; Z79.4 Long term (current) use of insulin; Z83.3 Family history of diabetes mellitus; Z82.49 Family history of ischemic heart disease and other diseases of the circulatory system; Z84.1 Family history of disorders of kidney and ureter; Z79.52 Long term (current) use of systemic steroids